=== PATIENT | female | born 1980 | race Caucasian/White ===

== ENCOUNTER 2020-05-17 14:31 | Emergency (ER) | payer OTHER, SELFPAY ==
[2020-05-17 14:47] VITALS: BP 134/69; PULSE 89; RESP 18; TEMP 36.5; O2SAT 98; BMI 47.2
--- NOTE | 2020-05-17 15:02 | CT_ITS ---
EXAMINATION: CT ABDOMEN AND PELVIS WITH CONTRAST CLINICAL INFORMATION: Abdominal pain, fever, bariatric surgery patient COMPARISON: None TECHNIQUE: Multidetector volumetric images were obtained from the superior aspect of the liver through the pubic symphysis following administration 85 mL of Omnipaque 350 intravenous contrast. Sagittal and coronal reformatted images were obtained on the technologist's workstation. Oral contrast: No This CT examination was performed using dose optimization techniques as appropriate, variously including the following: *Automated exposure control *Adjustment of mA and/or kV according to patient size (this includes techniques or standardized protocols for targeted exams where dose is matched to indication/reason for exam; i.e. extremities or head) *Use of iterative reconstruction technique DLP: 1579 mGy-cm FINDINGS: LUNG BASES: The visualized lung bases are unremarkable. LIVER, GALLBLADDER, AND BILIARY TREE: There is diffuse low attenuation of liver parenchyma due to fatty change. The liver is enlarged. The right lobe liver measures 26 cm superior inferior. No focal liver lesion or intrahepatic bile duct dilatation. Gallbladder is contracted. No edema around the gallbladder. No calcified gallstone. There is no bile duct dilatation. The extra hepatic CBD measures 5 mm. PANCREAS: Unremarkable. SPLEEN: Unremarkable. ADRENAL GLANDS: Unremarkable. KIDNEYS AND URETERS: The kidneys are normal in size, shape, and attenuation. No hydronephrosis, hydroureter, or calculi seen. No perinephric stranding. 1.7 cm cortical cyst lower pole of left kidney BLADDER: Unremarkable. GASTROINTESTINAL TRACT: Status post gastric banding. There is no acute abnormality of the bowel. No bowel obstruction. No bowel wall thickening or edema. The appendix is normal. The small bowel loops are unremarkable. Small volume of stool in colon with most of the stool in the right colon and cecum. ABDOMINAL WALL: No significant hernia is appreciated. LYMPH NODES: Normal. VASCULAR: Unremarkable. PELVIC VISCERA: Unremarkable. OSSEOUS STRUCTURES: Unremarkable. CT/CT abdomen pelvis w con IMPRESSION: 1. No acute abnormality the abdomen or pelvis. 2. Diffuse fatty change of liver with hepatomegaly. 3. Gastric band in place. There is no acute abnormality of the bowel.
--- NOTE | 2020-05-17 15:04 | ED.ABDPAIN ---
HPI - Abdominal Pain General Chief Complaint: Abdominal Pain Stated Complaint: stomach pain Time Seen by Provider: 05/17/20 15:02 Source: patient Mode of arrival: ambulatory Limitations: no limitations History of Present Illness HPI narrative: 39-year-old female with history of obesity she is status post gastric lap band in 2014 for weight loss along with history of multiple D&Cs and total hysterectomy as well as tonsillectomy additional medical history includes hyperlipidemia, anxiety and depression who presents ambulatory with complaint of diffuse upper abdominal pain for the past 4 days in addition she has some nausea with fever of 103 days ago which she reports went away and she has had some body aches runny nose, chills. States she has had epigastric pain in the past which will usually last for several days however this is different and has continued on. No recent hospitalization or antibiotics. No recent travel. No recent sick contacts. She denies any chest pain or shortness of breath MD elicited complaint: abdominal pain Pain Consistency: constant Location: epigastric and periumbilical Severity: moderate Quality: cramping and aching Radiation: epigastric Migration to: periumbilical Exacerbating factors: eating Associated symptoms: nausea, diarrhea, fever and chills Related Data Previous Rx's Medication Instructions Recorded nitrofurantoin monohyd/m-cryst 100 mg PO Q12H 7 Days #14 cap 05/17/20 [Macrobid] ondansetron HCl [Zofran] 4 mg PO Q8H PRN #10 tab 05/17/20 Allergies Allergy/AdvReac Type Severity Reaction Status Date / Time cephalexin [From KEFLEX] Allergy Intermediate HIVES Unverified 03/02/20 17:07 morphine [MORPHINE] Allergy Intermediate ? HIVES Unverified 03/02/20 17:07 ibuprofen Allergy Unknown Verified 03/18/19 00:00 NSAIDS (Non-Steroidal AdvReac Intermediate GI UPSET Unverified 03/02/20 17:07 Anti-Inflamma [NSAIDS (NON-STEROIDAL ANTI-INFLAMMA] Motrin Allergy Unknown Uncoded 03/18/19 00:00 Review of Systems Review of Systems Constitutional: No Weight loss, + Fever, + Chills, No Night Sweats, No Fatigue, No Malaise ENT/Mouth: No Hearing loss, No Ear Pain, No Nasal Congestion, No Sinus Pain, No Hoarseness, No sore throat, + Rhinorrhea, No Swallowing Difficulty Eyes: No Eye Pain, No Swelling, No Redness, No Foreign Body, No Discharge, No Vision Changes Cardiovascular: No Chest Pain, No SOB, No Dyspnea on Exertion, No Orthopnea, No Edema, No Palpitations Respiratory: No Cough, No Sputum, No Wheezing, No Smoke Exposure, No Dyspnea Gastrointestinal:As noted in HPI, No Hematochezia, No Melena Genitourinary: No Dysuria, No Urinary Frequency, No Hematuria, No Urinary Incontinence, No Urgency, No Flank Pain, No Urinary Flow Changes, No Hesitancy Musculoskeletal: No joint pain, No Myalgias, No Joint Swelling Skin: No Skin Lesions, No rash Neuro: No Weakness, No Numbness, No Paresthesias, No Loss of Consciousness, No Dizziness, No Headache Psych: No Social Issues Heme/Lymph: No Bruising, No Bleeding,No Lymphadenopathy Endocrine: No Polyuria, No Polydipsia, No Temperature Intolerance Yes all other systems are reviewed and are negative Physical Exam Vital Signs: Vital Signs: Last Vital Signs Temp 97.8 F 05/17/20 16:43 Pulse 56 05/17/20 16:43 Resp 20 05/17/20 16:43 BP 122/64 05/17/20 16:43 Pulse Ox 97 05/17/20 16:43 Body Mass Index 47.2 Reviewed Const: General: cooperative and healthy appearing; No acute distress or intoxicated appearing Nutritional Appearance: average body habitus Orientation/consciousness: patient oriented x3 HENMT: Head: Yes normal to inspection Ears: hearing grossly normal bilaterally Eyes: General: appearance normal, both eyes and all related structures Visual Roman: normal visual roman by confrontation Neck: Neck: Yes normal visual inspection and No tender Thyroid: Thyroid normal Chest: Chest palpation & inspection: normal inspection of the chest Resp: Effort & Inspection: normal respiratory effort Auscultation: clear to auscultation bilaterally Cardio: Jugular venous distension: no JVD Rhythm: regular rhythm GI: Inspection: Yes normal to inspection Palpation (GI): Tenderness to palpation present (GI) in the epigastrum; with no rebound tenderness Percussion: Yes normal to percussion Auscultation: normal bowel sounds : General: Yes no CVA tenderness Back/Spine/Pelvis: Back: no CVA tenderness Skin: General skin exam: no rashes or lesions noted Neuro: General: patient oriented x3 Extrem: General: Yes normal to inspection Course Course Course Narrative: Symptoms better after GI cocktail. Lab/imaging overall without acute findings. No leukocytosis. Renal function intact. CT without acute findings. UA overly infected will go ahead and start her Macrobid. She has not had any diarrhea here I did request that she continues she can have a stool sample through her primary care doctor. She is on a PPI will call her GI for follow-up clear return follow-up instructions provided. Stable for discharge. MDM - Abdominal Pain MDM Narrative Medical decision making narrative: Afebrile, hemodynamically stable upon arrival. Does not meet criteria for sepsis. Labs including respiratory panel ordered. Given her extensive abdominal surgical history and the fever abdominal CT with IV contrast ordered as well rule out acute pathology. Will treat with IV fluids, antiemetic and GI cocktail. Differential Diagnosis Differential diagnosis: Likely abdominal pain, gastroenteritis and gastritis; Unlikely aortic dissection, acute appendicitis, bowel perforation, calculus of kidney, constipation, endometriosis, mesenteric ischemia, pancreatitis, renal colic and small bowel obstruction Differential diagnosis narrative:: differential also includes viral syndrome, viral gastroenteritis, COVID-19. Medical Records Attestation: I reviewed the patient's medical records. Lab Data Attestation: I reviewed the patient's lab results. Result diagrams: 05/17/20 15:22 05/17/20 15:22 Labs: Lab Results 05/17/20 05/17/20 05/17/20 Range/Units 15:22 15:22 15:22 WBC 8.2 (4.8-10.8) X10*3/uL RBC 5.02 (4.20-5.50) X10*6/uL Hgb 13.9 (12.0-16.0) g/dl Hct 42.2 (37-47) % MCV 84.1 (80-98) fL MCH 27.7 (27.0-33.0) pg MCHC 32.9 (31.0-35.0) g/dl RDW 14.5 (11.0-16.0) % Plt Count 264 (160-400) X10*3/uL MPV 10.4 (9.4-12.3) fL Immature Gran % (Auto) 0.2 (0.0-0.4) % Neut % (Auto) 42.2 L (45-73) % Lymph % (Auto) 44.7 H (20-40) % [place] % (Auto) 6.6 (2-11) % Eos % (Auto) 5.4 H (0-4) % Baso % (Auto) 0.9 (0-2) % Lymph # (Auto) 3.7 (1.2-4.9) X10*3/uL [place] # (Auto) 0.5 (0.1-1.2) X10*3/uL Eos # (Auto) 0.4 (0.0-0.4) X10*3/uL Baso # (Auto) 0.1 (0.0-0.2) X10*3/uL Abs Immat Gran (auto) 0.02 (0.00-0.03) X10*3/uL Absolute Neuts (auto) 3.5 (2.0-8.3) X10*3/uL Absolute Nucleated RBC 0.000 (0.0-0.012) X10*3/uL Nucleated RBC % (auto) 0.0 (0.0-0.2) /100WBC Sodium 140 (135-145) mmol/L Potassium 4.1 (3.3-5.1) mmol/l Chloride 103 (96-108) mmol/L Carbon Dioxide 30 H (22-29) mmol/L Anion Gap 11 L (12-20) BUN 9 (9-16) mg/dL Creatinine 0.86 (0.5-1.4) mg/dL Estim Creat Clear Calc 121.8 Estimated GFR > 60 Random Glucose 94 (60-115) mg/dL Calcium 9.0 (8.4-10.2) mg/dL Total Bilirubin 0.4 (0.0-1.0) mg/dL AST 54 H (5-31) U/L ALT 54 H (0-31) U/L Alkaline Phosphatase 93 (39-117) U/L Total Protein 7.2 (6.5-8.0) g/dL Albumin 4.2 (3.5-5.0) g/dL Urine Color Urine Appearance Urine pH (5.0-8.0) Ur Specific [place] (1.005-1.025) Urine Protein (NEG-TRACE) MG/DL Urine Glucose (UA) (NEG) MG/DL Urine Ketones (NEG) MG/DL Urine Blood (NEG) Urine Nitrite (NEG) Ur Leukocyte Esterase (NEG) Urine RBC (0) /HPF Urine WBC (0-4) /HPF Ur Squamous Epith Cells /LPF Urine Bacteria /LPF Urine Mucus /LPF Urine Test (NEGATIVE) Coronavirus (PCR) NEGATIVE (Negative) Influenza Type A (PCR) NEGATIVE (Negative) Influenza Type B (PCR) NEGATIVE (Negative) RSV RNA Qual (PCR) NEGATIVE (Negative) 05/17/20 Range/Units 15:22 WBC (4.8-10.8) X10*3/uL RBC (4.20-5.50) X10*6/uL Hgb (12.0-16.0) g/dl Hct (37-47) % MCV (80-98) fL MCH (27.0-33.0) pg MCHC (31.0-35.0) g/dl RDW (11.0-16.0) % Plt Count (160-400) X10*3/uL MPV (9.4-12.3) fL Immature Gran % (Auto) (0.0-0.4) % Neut % (Auto) (45-73) % Lymph % (Auto) (20-40) % [place] % (Auto) (2-11) % Eos % (Auto) (0-4) % Baso % (Auto) (0-2) % Lymph # (Auto) (1.2-4.9) X10*3/uL [place] # (Auto) (0.1-1.2) X10*3/uL Eos # (Auto) (0.0-0.4) X10*3/uL Baso # (Auto) (0.0-0.2) X10*3/uL Abs Immat Gran (auto) (0.00-0.03) X10*3/uL Absolute Neuts (auto) (2.0-8.3) X10*3/uL Absolute Nucleated RBC (0.0-0.012) X10*3/uL Nucleated RBC % (auto) (0.0-0.2) /100WBC Sodium (135-145) mmol/L Potassium (3.3-5.1) mmol/l Chloride (96-108) mmol/L Carbon Dioxide (22-29) mmol/L Anion Gap (12-20) BUN (9-16) mg/dL Creatinine (0.5-1.4) mg/dL Estim Creat Clear Calc Estimated GFR Random Glucose (60-115) mg/dL Calcium (8.4-10.2) mg/dL Total Bilirubin (0.0-1.0) mg/dL AST (5-31) U/L ALT (0-31) U/L Alkaline Phosphatase (39-117) U/L Total Protein (6.5-8.0) g/dL Albumin (3.5-5.0) g/dL Urine Color YELLOW Urine Appearance CLOUDY Urine pH 5.5 (5.0-8.0) Ur Specific [place] >= 1.030 H (1.005-1.025) Urine Protein TRACE (NEG-TRACE) MG/DL Urine Glucose (UA) NEG (NEG) MG/DL Urine Ketones NEG (NEG) MG/DL Urine Blood 1+ H (NEG) Urine Nitrite NEG (NEG) Ur Leukocyte Esterase 1+ H (NEG) Urine RBC 5-9 H (0) /HPF Urine WBC 15-29 H (0-4) /HPF Ur Squamous Epith Cells 2+ /LPF Urine Bacteria 1+ /LPF Urine Mucus 1+ /LPF Urine Test NEGATIVE (NEGATIVE) Coronavirus (PCR) (Negative) Influenza Type A (PCR) (Negative) Influenza Type B (PCR) (Negative) RSV RNA Qual (PCR) (Negative) Discharge Plan Discharge Clinical Impression: UTI (urinary tract infection), Gastroenteritis Patient Disposition: Home, Self-Care Instructions: Gastroenteritis (ED), Urinary Tract Infection in Older Adults (ED) Additional Instructions: taking medications as prescribed Return if any concerns or worsening symptoms Thank you Prescriptions: New ondansetron HCl [Zofran] 4 mg tablet 4 mg PO Q8H PRN (Reason: nausea and vomiting) Qty: 10 RF: 0 nitrofurantoin monohyd/m-cryst [Macrobid] 100 mg capsule 100 mg PO Q12H 7 Days Qty: 14 RF: 0 Referrals: Megan Weiss, [employer] [facility]PER [Primary Care Provider] - 5 days [facility] Social History Social History Advance Directives: No Advance Directives Information Provided: No
[2020-05-17] MEDS: 0.9 % Sodium Chloride 1,000 ML 1000 ML IV (15:24)
[2020-05-17] MEDS: Magnesium Hydrox/Alum Hydrox 30 ML ORAL.SUSP PO (15:38)
[2020-05-17] MEDS: Lidocaine HCl Viscous 2 % 15 ML SOLUTION MUCOUS MEM (15:38)
[2020-05-17] MEDS: ondansetron HCL 4 MG/2 ML VIAL IVPUSH (15:38)
[2020-05-17 15:52] LABS: MANUAL DIFF FLAG NO
[2020-05-17 15:56] LABS: Basophils Absolute Auto 0.1 X10*3/uL (0.0-0.2); Basophils Percent Auto 0.9 % (0-2); Eosinophils Absolute Auto 0.4 X10*3/uL (0.0-0.4); Eosinophils Percent Auto 5.4 % (0-4); Glucose Urine UA NEG (NEG); Hematocrit 42.2 % (37-47); Hemoglobin 13.9 g/dl (12.0-16.0); Imm Gran Abs Auto 0.02 X10*3/uL (0.00-0.03); Imm Gran Pct Auto 0.2 % (0.0-0.4); Leukocyte Esterase Urine 1+ (NEG); Lymphocytes Absolute Auto 3.7 X10*3/uL (1.2-4.9); Lymphocytes Percent Auto 44.7 % (20-40); Mean Corpuscular HGB Conc 32.9 g/dl (31.0-35.0); Mean Corpuscular Hemoglobin 27.7 pg (27.0-33.0); Mean Corpuscular Volume 84.1 fL (80-98); Mean Platelet Volume 10.4 fL (9.4-12.3); Monocytes Absolute Auto 0.5 X10*3/uL (0.1-1.2); Monocytes Percent Auto 6.6 % (2-11); Neutrophils Absolute Auto 3.5 X10*3/uL (2.0-8.3); Neutrophils Percent Auto 42.2 % (45-73); Nitrite Urine NEG (NEG); PH 5.5 (5.0-8.0); Platelet Count 264 X10*3/uL (160-400); Red Blood Count 5.02 X10*6/uL (4.20-5.50); Red Cell Distribution Width 14.5 % (11.0-16.0); Specific Gravity - Urine >= 1.030 (1.005-1.025); Urine Blood 1+ (NEG); Urine Ketones NEG (NEG); Urine Protein TRACE MG/DL (NEG-TRACE); White Blood Count 8.2 X10*3/uL (4.8-10.8)
[2020-05-17 16:09] LABS: Appearance Urine CLOUDY; Color Urine YELLOW
[2020-05-17 16:11] LABS: UPreg QC Valid YES; Urine Pregnancy NEGATIVE (NEGATIVE)
[2020-05-17 16:15] LABS: Bacteria Urine 1+ /LPF; Mucus Urine 1+ /LPF; Squamous Epithelial Cell Urine 2+ /LPF
[2020-05-17 16:23] LABS: Alanine Aminotransferase 54 U/L (0-31); Albumin Level 4.2 g/dL (3.5-5.0); Alkaline Phosphatase 93 U/L (39-117); Anion Gap 11 (12-20); Aspartate Amino Transferase 54 U/L (5-31); Bilirubin Total 0.4 mg/dL (0.0-1.0); Blood Urea Nitrogen 9 mg/dL (9-16); Carbon Dioxide 30 mmol/L (22-29); Chloride 103 mmol/L (96-108); Creatinine Clr Calc Pharmacy 121.8; Estimated Glomerular Filt Rate > 60; Glucose Random 94 mg/dL (60-115); Potassium 4.1 mmol/l (3.3-5.1); Sodium 140 mmol/L (135-145); Total Protein 7.2 g/dL (6.5-8.0)
[2020-05-17 16:43] VITALS: BP 122/64; PULSE 56; RESP 20; TEMP 36.6; O2SAT 97
[2020-05-17 16:43] LABS: Influenza A PCR NEGATIVE (Negative); Influenza B PCR NEGATIVE (Negative); Resp Syncy Virus RNA Qual PCR NEGATIVE (Negative); SARS COV2 PCR INHOUSE NEGATIVE (Negative)
[2020-05-17] MEDS: iohexoL 350 MG/ML 100 ML INFUS..BTL IV (16:47)
[2020-05-17 18:05] VITALS: BP 119/67; PULSE 69; RESP 16; TEMP 36.6; O2SAT 96
== END 2020-05-17 18:00 | disposition home or self-care (01) ==
PROVIDERS: Nurse Practitioner Primary Care; Emergency Provider Emergency Medicine; PCP Nurse Practitioner Family
DX: K52.9 Noninfective gastroenteritis and colitis, unspecified (principal); N39.0 Urinary tract infection, site not specified; Z79.899 Other long term (current) drug therapy
CPT/HCPCS: 0241U; 36415; 74177; 80053; 81001; 81025; 85025; 87086; 96361; 96374; 99284; J2405; Q9967

== ENCOUNTER 2021-10-14 15:18 | Emergency (ER) | payer MEDICAID, SELFPAY ==
--- NOTE | ~2021-10-14 | US_ITS ---
EXAMINATION: US ABDOMEN LIMITED CLINICAL INFORMATION: Right upper quadrant pain. COMPARISON: None TECHNIQUE: Real-time imaging of the right upper quadrant abdominal viscera. FINDINGS: PANCREAS: Normal. LIVER: The liver is normal in size. The liver contour is normal. Diffuse increased hepatic echotexture suggesting diffuse fatty infiltration of the liver. No focal hepatic lesion. There is no intrahepatic biliary duct dilatation seen. GALLBLADDER: Normal. The gallbladder is contracted without evidence of stones, sludge, polyps, wall thickening or pericholecystic fluid. COMMON BILE DUCT: Normal in caliber measuring 0.2 cm in diameter. RIGHT KIDNEY: Normal. No hydronephrosis. No renal calculi or focal parenchymal lesions. The kidney measures 10.2 cm in maximum dimension. FREE FLUID: None. US/US abdomen limited IMPRESSION: Diffuse fatty infiltration of the liver. Gallbladder contracted but otherwise unremarkable
[2021-10-14 15:25] VITALS: BP 122/83; PULSE 91; RESP 18; TEMP 36.8; O2SAT 97; BMI 43.5
[2021-10-14 15:36] LABS: MANUAL DIFF FLAG NO
[2021-10-14 15:38] LABS: Basophils Absolute Auto 0.1 X10*3/uL (0.0-0.2); Basophils Percent Auto 0.8 % (0-2); Eosinophils Absolute Auto 0.5 X10*3/uL (0.0-0.4); Eosinophils Percent Auto 4.5 % (0-4); Hematocrit 40.6 % (37.0-47.0); Hemoglobin 13.7 g/dl (12.0-16.0); Imm Gran Abs Auto 0.03 X10*3/uL (0.00-0.03); Imm Gran Pct Auto 0.3 % (0.0-0.4); Lymphocytes Percent Auto 40.5 % (20-40); Mean Corpuscular HGB Conc 33.7 g/dl (31.0-35.0); Mean Corpuscular Hemoglobin 29.1 pg (27.0-33.0); Mean Corpuscular Volume 86.2 fL (80.0-98.0); Mean Platelet Volume 9.8 fL (9.4-12.3); Monocytes Absolute Auto 0.5 X10*3/uL (0.1-1.2); Monocytes Percent Auto 5.3 % (2-11); Neutrophils Absolute Auto 4.8 x10*3/uL (2.0-8.3); Neutrophils Percent Auto 48.6 % (45-73); Platelet Count 258 X10*3/uL (160-400); Red Blood Count 4.71 X10*6/uL (4.20-5.50); Red Cell Distribution Width 14.4 % (11.0-16.0)
[2021-10-14 15:52] LABS: Anion Gap 14 (12-20); Blood Urea Nitrogen 7 mg/dL (9-16); Calcium 9.5 mg/dL (8.4-10.2); Carbon Dioxide 22 mmol/L (22-29); Chloride 106 mmol/L (96-108); Creatinine Clr Calc Pharmacy 123.5; Estimated Glomerular Filt Rate > 60; Glucose Random 105 mg/dL (60-115); Potassium 3.7 mmol/L (3.3-5.1); Sodium 138 mmol/L (135-145)
[2021-10-14 17:18] LABS: Alanine Aminotransferase 36 U/L (0-31); Albumin Level 4.1 g/dL (3.5-5.0); Alkaline Phosphatase 101 U/L (39-117); Aspartate Amino Transferase 38 U/L (5-31); Bilirubin Direct < 0.2 mg/dL (0.0-0.5); Bilirubin Total 0.4 mg/dL (0.0-1.0); Lipase 64 U/L (8-78); Total Protein 7.3 g/dL (6.5-8.0)
--- NOTE | 2021-10-14 17:30 | ED.ABDPAIN ---
HPI - Abdominal Pain General Chief Complaint: Abdominal Pain <MALLORY Moffett Last Filed: 10/14/21 19:06> Stated Complaint: Abd Pain Radiating to Back <MALLORY Moffett Last Filed: 10/14/21 19:06> Time Seen by Provider: 10/14/21 17:05 <MALLORY Moffett Last Filed: 10/14/21 19:06> Source: patient <MALLORY Moffett Last Filed: 10/14/21 19:06> Mode of arrival: ambulatory <MALLORY Moffett Last Filed: 10/14/21 19:06> Limitations: no limitations <MALLORY Moffett Last Filed: 10/14/21 19:06> History of Present Illness HPI narrative: 40 yo female with history of obesity s/p lap band in 2013, GERD, anxiety, depression, HLD, who presents to the ER with epigastric and RUQ abdominal pain that radiates around to her back. She reports she has had this pain before and she has been told she has had gallbladder issues but she has not had this pain long time. She reports the pain is worse with food. Has been going on for the last couple of days. She is nauseous but not vomiting. She had a normal bowel movement yesterday. She has no fever or chills. She is not a drinker. She states the pain starts in her epigastric area and radiates to the right upper quadrant into the back. It is constant but worse with eating. <MALLORY Moffett Last Filed: 10/14/21 19:06> MD elicited complaint: abdominal pain <MALLORY Moffett Last Filed: 10/14/21 19:06> Pertinent past history: none <MALLORY Moffett Last Filed: 10/14/21 19:06> Onset (ago): day(s) <MALLORY Moffett Last Filed: 10/14/21 19:06> Pain Consistency: constant <MALLORY Moffett Last Filed: 10/14/21 19:06> Location: RUQ <MALLORY Moffett Last Filed: 10/14/21 19:06> Severity: moderate <MALLORY Moffett - Last Filed: 10/14/21 19:06> Pain scale (0-10): 6 <MALLORY Mofftet - Last Filed: 10/14/21 19:06> Quality: aching and sharp <MALLORY Moffett - Last Filed: 10/14/21 19:06> Radiation: epigastric and back <MALLORY Moffett Last Filed: 10/14/21 19:06> Migration to: no migration <MALLORY Moffett - Last Filed: 10/14/21 19:06> Exacerbating factors: eating <MALLORY Moffett - Last Filed: 10/14/21 19:06> Relieving factors: nothing <MALLORY Moffett - Last Filed: 10/14/21 19:06> Context: history of similar episodes <MALLORY Moffett Last Filed: 10/14/21 19:06> Associated symptoms: nausea <MALLORY Moffett Last Filed: 10/14/21 19:06> Related Data Home Medications: Previous Rx's Medication Instructions Recorded nitrofurantoin 100 mg PO Q12H 7 Days #14 cap 05/17/20 monohydrate/macrocrystals 100 mg capsule (Macrobid) ondansetron HCl 4 mg tablet 4 mg PO Q8H PRN #10 tab 05/17/20 (Zofran) ondansetron 4 mg disintegrating 4 mg PO Q8H PRN #7 tab 10/14/21 tablet <MALLORY Moffett Last Filed: 10/14/21 19:06> Allergies/Adverse Reactions: Allergies Allergy/AdvReac Type Severity Reaction Status Date / Time cephalexin [From KEFLEX] Allergy Intermediate HIVES Unverified 03/02/20 17:07 morphine [MORPHINE] Allergy Intermediate ? HIVES Unverified 03/02/20 17:07 ibuprofen Allergy Unknown Verified 03/18/19 00:00 NSAIDS (Non-Steroidal AdvReac Intermediate GI UPSET Unverified 03/02/20 17:07 Anti-Inflamma [NSAIDS (NON-STEROIDAL ANTI-INFLAMMA] Motrin Allergy Unknown Uncoded 03/18/19 00:00 <MALLORY Moffett - Last Filed: 10/14/21 19:06> Review of Systems Review of Systems Constitutional: No Fever, No Chills ENT/Mouth: No sore throat, No Rhinorrhea, No Swallowing Difficulty Cardiovascular: No Chest Pain, No SOB Respiratory: No Cough, No Sputum Gastrointestinal: + Nausea, No Vomiting, No Diarrhea, + abdominal Pain Genitourinary: No Dysuria, No Urinary Frequency, No Hematuria Musculoskeletal: No joint pain, No Myalgias Skin: No Skin Lesions, No rash Neuro: No Weakness, No Numbness, No Dizziness, No Headache Psych: No Anxiety/Panic, No Depression Heme/Lymph: No Bruising, No Lymphadenopathy <MALLORY Moffett Last Filed: 10/14/21 19:06> [facility] Past Medical History Medical History: Medical History (Updated 10/15/21 @ 00:01 by Courtney Damahnaz) Insomnia <MALLORY Moffett Last Filed: 10/14/21 19:06> Social History Social History: Social History Advance Directives: No Advance Directives Information Provided: No Patient : No <MALLORY Moffett Last Filed: 10/14/21 19:06> Physical Exam ED Vital Signs: Vital Signs - 24 hr 10/14/21 15:25 Temperature 98.3 F Pulse Rate 91 Respiratory Rate 18 Blood Pressure 122/83 Pulse Oximetry 97 BMI result Body Mass Index 43.5 <MALLORY Moffett Last Filed: 10/14/21 19:06> Appearance: Alert. Oriented X3. No acute distress. Eyes: Pupils equal, round and reactive to light. ENT: Pharynx normal. Neck: Normal inspection. Neck supple. CVS: Normal heart rate and rhythm. Pulses normal. Respiratory: No respiratory distress. Breath sounds normal. Abdomen: Morbidly obese, Soft with epigastric and right upper quadrant tenderness. Negative [place] sign. No rebound or guarding. Normal +BS x4 Skin: Skin warm and dry. Normal skin color. Normal skin turgor. No rashes. Extremities: No lower extremity edema. Neuro: Oriented X 3. No motor deficit. No sensory deficit. <MALLORY Moffett Last Filed: 10/14/21 19:06> Course Course Course Narrative: 40-year-old female presents to the ER with epigastric and right upper quadrant pain that radiates to the back along with nausea. She has tenderness in right upper quadrant on examination. She has mildly elevated transaminases (chronic) but no elevated bilirubin or alk-phos, no evidence of biliary obstruction. Will proceed with right upper quadrant ultrasound to assess for possible stones. Less likely cholecystitis. Lipase is normal, doubt acute pancreatitis. No risk factors. <MALLORY Moffett - Last Filed: 10/14/21 19:06> Reevaluation(s) Reevaluation #1: Right upper quadrant ultrasound shows contracted gallbladder and diffuse fatty liver but no evidence of gallstones or infection. Patient was advised of the results and need for dietary modifications. She was encourage follow-up with Dr. Vásquez as for evaluation of elective cholecystectomy. Stable for discharge home with close outpatient follow-up. <MALLORY Moffett - Last Filed: 10/14/21 19:06> MDM - Abdominal Pain Lab Data Result diagrams: : 10/14/21 15:32 10/14/21 15:32 <MALLORY Moffett - Last Filed: 10/14/21 19:06> Labs: Lab Results 10/14/21 10/14/21 10/14/21 Range/Units 15:32 15:32 17:29 WBC 10.0 (4.8-10.8) X10*3/uL RBC 4.71 (4.20-5.50) X10*6/uL Hgb 13.7 (12.0-16.0) g/dl Hct 40.6 (37.0-47.0) % MCV 86.2 (80.0-98.0) fL MCH 29.1 (27.0-33.0) pg MCHC 33.7 (31.0-35.0) g/dl RDW 14.4 (11.0-16.0) % Plt Count 258 (160-400) X10*3/uL MPV 9.8 (9.4-12.3) fL Immature Gran % (Auto) 0.3 (0.0-0.4) % Neut % (Auto) 48.6 (45-73) % Lymph % (Auto) 40.5 H (20-40) % [place] % (Auto) 5.3 (2-11) % Eos % (Auto) 4.5 H (0-4) % Baso % (Auto) 0.8 (0-2) % Lymph # (Auto) 4.0 (1.2-4.9) X10*3/uL [place] # (Auto) 0.5 (0.1-1.2) X10*3/uL Eos # (Auto) 0.5 H (0.0-0.4) X10*3/uL Baso # (Auto) 0.1 (0.0-0.2) X10*3/uL Abs Immat Gran (auto) 0.03 (0.00-0.03) X10*3/uL Absolute Neuts (auto) 4.8 (2.0-8.3) x10*3/uL Absolute Nucleated RBC 0.000 (0.0-0.012) X10*3/uL Nucleated RBC % (auto) 0.0 (0.0-0.2) /100WBC Sodium 138 (135-145) mmol/L Potassium 3.7 (3.3-5.1) mmol/L Chloride 106 (96-108) mmol/L Carbon Dioxide 22 (22-29) mmol/L Anion Gap 14 (12-20) BUN 7 L (9-16) mg/dL Creatinine 0.80 (0.5-1.4) mg/dL Estim Creat Clear Calc 123.5 Estimated GFR > 60 Random Glucose 105 (60-115) mg/dL Calcium 9.5 (8.4-10.2) mg/dL Total Bilirubin 0.4 (0.0-1.0) mg/dL Direct Bilirubin < 0.2 (0.0-0.5) mg/dL AST 38 H (5-31) U/L ALT 36 H (0-31) U/L Alkaline Phosphatase 101 (39-117) U/L Total Protein 7.3 (6.5-8.0) g/dL Albumin 4.1 (3.5-5.0) g/dL Lipase 64 (8-78) U/L Urine Color YELLOW Urine Appearance CLEAR Urine pH 5.5 (5.0-8.0) Ur Specific [place] <= 1.005 (1.005-1.025) Urine Protein NEG (NEG-TRACE) MG/DL Urine Glucose (UA) NEG (NEG) MG/DL Urine Ketones NEG (NEG) MG/DL Urine Blood NEG (NEG) Urine Nitrite NEG (NEG) Ur Leukocyte Esterase NEG (NEG) Urine Test (NEGATIVE) 10/14/21 Range/Units 17:29 WBC (4.8-10.8) X10*3/uL RBC (4.20-5.50) X10*6/uL Hgb (12.0-16.0) g/dl Hct (37.0-47.0) % MCV (80.0-98.0) fL MCH (27.0-33.0) pg MCHC (31.0-35.0) g/dl RDW (11.0-16.0) % Plt Count (160-400) X10*3/uL MPV (9.4-12.3) fL Immature Gran % (Auto) (0.0-0.4) % Neut % (Auto) (45-73) % Lymph % (Auto) (20-40) % [place] % (Auto) (2-11) % Eos % (Auto) (0-4) % Baso % (Auto) (0-2) % Lymph # (Auto) (1.2-4.9) X10*3/uL [place] # (Auto) (0.1-1.2) X10*3/uL Eos # (Auto) (0.0-0.4) X10*3/uL Baso # (Auto) (0.0-0.2) X10*3/uL Abs Immat Gran (auto) (0.00-0.03) X10*3/uL Absolute Neuts (auto) (2.0-8.3) x10*3/uL Absolute Nucleated RBC (0.0-0.012) X10*3/uL Nucleated RBC % (auto) (0.0-0.2) /100WBC Sodium (135-145) mmol/L Potassium (3.3-5.1) mmol/L Chloride (96-108) mmol/L Carbon Dioxide (22-29) mmol/L Anion Gap (12-20) BUN (9-16) mg/dL Creatinine (0.5-1.4) mg/dL Estim Creat Clear Calc Estimated GFR Random Glucose (60-115) mg/dL Calcium (8.4-10.2) mg/dL Total Bilirubin (0.0-1.0) mg/dL Direct Bilirubin (0.0-0.5) mg/dL AST (5-31) U/L ALT (0-31) U/L Alkaline Phosphatase (39-117) U/L Total Protein (6.5-8.0) g/dL Albumin (3.5-5.0) g/dL Lipase (8-78) U/L Urine Color Urine Appearance Urine pH (5.0-8.0) Ur Specific [place] (1.005-1.025) Urine Protein (NEG-TRACE) MG/DL Urine Glucose (UA) (NEG) MG/DL Urine Ketones (NEG) MG/DL Urine Blood (NEG) Urine Nitrite (NEG) Ur Leukocyte Esterase (NEG) Urine Test NEGATIVE (NEGATIVE) <MALLORY Moffett - Last Filed: 10/14/21 19:06> Discharge Plan Discharge Clinical Impression: Biliary colic <MALLORY Moffett - Last Filed: 10/14/21 19:06> Patient Disposition: Home, Self-Care <MALLORY Moffett - Last Filed: 10/14/21 19:06> Instructions: Biliary Colic (ED) <MALLORY Moffett - Last Filed: 10/14/21 19:06> Additional Instructions: Your lab work today was unremarkable. Ultrasound of your abdomen showed your gallbladder is contracted, but there are no evidence of gallstones or infection in the gallbladder. Given your history and location of the pain is most likely due to contractions of your gallbladder. This is known to be worse with foods high in fat her dairy. Recommend significant dietary modifications including avoiding all fatty food, dairy, greasy or fried food. Recommend following up with the general surgeon for evaluation of elective gallbladder removal. Follow-up with her primary care doctor as well. If you develop new or worsening symptoms call 911 or come back to the ER for further evaluation. <MALLORY Moffett - Last Filed: 10/14/21 19:06> Prescriptions: New ondansetron 4 mg tablet,disintegrating 4 mg PO Q8H PRN (Reason: nausea and vomiting) Qty: 7 0RF No Action ondansetron HCl [Zofran] 4 mg tablet 4 mg PO Q8H PRN (Reason: nausea and vomiting) Qty: 10 0RF nitrofurantoin monohyd/m-cryst [Macrobid] 100 mg capsule 100 mg PO Q12H 7 Days Qty: 14 0RF Rx Instructions: must administer with a meal/food <MALLORY Moffett - Last Filed: 10/14/21 19:06> Referrals: Molina Murphy MD [Physician] - (biliary colic) <MALLORY Moffett - Last Filed: 10/14/21 19:06> Stand Alone Forms: Work/School Release <MALLORY Moffett - Last Filed: 10/14/21 19:06> Interventions: ED Discharge Assessment Last Done: 10/14/21 19:19 <MALLORY Moffett - Last Filed: 10/14/21 19:06> Discharge Date/Time: 10/14/21 19:21 <MALLORY Moffett - Last Filed: 10/14/21 19:06>
[2021-10-14] MEDS: HYDROcodone Bit/Acetam 5/325 TABLET 1 TAB PO (17:32)
[2021-10-14 17:42] LABS: Appearance Urine CLEAR; Color Urine YELLOW; Glucose Urine UA NEG (NEG); Leukocyte Esterase Urine NEG (NEG); Nitrite Urine NEG (NEG); PH 5.5 (5.0-8.0); Specific Gravity - Urine <= 1.005 (1.005-1.025); Urine Blood NEG (NEG); Urine Ketones NEG (NEG); Urine Protein NEG (NEG-TRACE)
[2021-10-14 17:43] LABS: UPreg QC Valid YES; Urine Pregnancy NEGATIVE (NEGATIVE)
== END 2021-10-14 19:21 | disposition home or self-care (01) ==
PROVIDERS: Physician Assistant; Emergency Provider Emergency Medicine; PCP Nurse Practitioner Family
DX: K80.50 Calculus of bile duct without cholangitis or cholecystitis without obstruction (principal); Z98.84 Bariatric surgery status
CPT/HCPCS: 36415; 76705; 80048; 80076; 81003; 81025; 83690; 85025; 99284

== ENCOUNTER → 2021-10-16 10:12 | Outpatient (BNVA) | payer MEDICAID, SELFPAY | PROVIDERS: PCP Nurse Practitioner Family; Referring Provider Nurse Practitioner Family; Visit Provider Surgery | DX: K75.81 Nonalcoholic steatohepatitis (NASH) (principal); R10.11 Right upper quadrant pain; K21.9 Gastro-esophageal reflux disease without esophagitis; E66.01 Morbid (severe) obesity due to excess calories; Z68.41 Body mass index [BMI] 40.0-44.9, adult; Z98.84 Bariatric surgery status | CPT/HCPCS: 99202 ==

== ENCOUNTER 2022-01-08 10:19 | Outpatient (REF) | payer MEDICAID, SELFPAY ==
--- NOTE | ~2022-01-08 | FL_ITS ---
EXAMINATION: XR GI SERIES CLINICAL INFORMATION: Gastroesophageal reflux disease. History of gastric lap band placement in approximately 2013. COMPARISON: None. TECHNIQUE: Routine upper GI air-contrast study was performed in the upright and lying position. FINDINGS: Following oral administration of thick barium and effervescent granules in upright view there is normal propagation of bolus from the oral cavity through the pharynx and esophagus without any evidence of obstruction, narrowing or stricture. On placing patient supine and prone there is a gastric lap band in correct position. However the gastric band is widely patent with spontaneous propagation of barium from the esophagus through the small stomach into the larger stomach. The rest of the stomach course, caliber and peristalsis are normal. The mucosal pattern is normal. No gastroesophageal reflux or hiatal hernia are seen. FLUOROSCOPY TIME: 2.7 minutes. DOSE AREA PRODUCT: 63.936 uGy-m2 (microgray-meter squared). FL/FL upper GI series IMPRESSION: Widely patent gastric lap band with no evidence of hiatal hernia or gastroesophageal reflux at this time. There is rapid passage of barium from this distal esophagus, through the GE junction and the gastric lap band into the larger stomach.
== END 2022-01-08 10:20 | disposition home or self-care (01) ==
LOC: HO.XRAY 10:19
PROVIDERS: Visit Provider Surgery
DX: R10.11 Right upper quadrant pain (principal); K21.9 Gastro-esophageal reflux disease without esophagitis; Z98.84 Bariatric surgery status
CPT/HCPCS: 74240

== ENCOUNTER 2023-02-27 12:39 | Outpatient (REF) | payer MEDICAID, SELFPAY ==
[2023-02-27 14:15] LABS: MANUAL DIFF FLAG NO
[2023-02-27 14:53] LABS: Basophils Absolute Auto 0.1 X10*3/uL (0.0-0.2); Basophils Percent Auto 1.1 % (0-2); Eosinophils Absolute Auto 0.4 X10*3/uL (0.0-0.4); Eosinophils Percent Auto 4.6 % (0-4); Hematocrit 44.5 % (37.0-47.0); Hemoglobin 14.3 g/dl (12.0-16.0); Imm Gran Abs Auto 0.02 X10*3/uL (0.00-0.03); Imm Gran Pct Auto 0.2 % (0.0-0.4); Lymphocytes Percent Auto 35.2 % (20-40); Mean Corpuscular HGB Conc 32.1 g/dl (31.0-35.0); Mean Corpuscular Volume 80.8 fL (80.0-98.0); Mean Platelet Volume 11.4 fL (9.4-12.3); Monocytes Absolute Auto 0.5 X10*3/uL (0.1-1.2); Monocytes Percent Auto 5.4 % (2-11); Neutrophils Absolute Auto 4.6 x10*3/uL (2.0-8.3); Neutrophils Percent Auto 53.5 % (45-73); Platelet Count 293 X10*3/uL (160-400); Red Blood Count 5.51 X10*6/uL (4.20-5.50); Red Cell Distribution Width 13.8 % (11.0-16.0); White Blood Count 8.6 X10*3/uL (4.8-10.8)
[2023-02-27 15:13] LABS: Alanine Aminotransferase 21 U/L (0-31); Albumin Level 4.6 g/dL (3.5-5.0); Alkaline Phosphatase 88 U/L (39-117); Anion Gap 14 (12-20); Aspartate Amino Transferase 24 U/L (5-31); Bilirubin Total 0.3 mg/dL (0.0-1.0); Blood Urea Nitrogen 10 mg/dL (9-16); C Reactive Protein 1.38 mg/dL (< or = 0.50); Calcium 10.2 mg/dL (8.4-10.2); Carbon Dioxide 26 mmol/L (22-29); Chloride 102 mmol/L (96-108); Estimated Glomerular Filt Rate > 60; Glucose Random 88 mg/dL (60-115); Sodium 138 mmol/L (135-145); Total Protein 8.2 g/dL (6.5-8.0)
[2023-02-27 15:42] LABS: Estimated Average Glucose 103 mg/dL; Hemoglobin A1c % 5.2 % (<6.0)
[2023-02-27 17:12] LABS: Amphetamine Screen Urine POSITIVE (Not Detect); Barbiturates, Urine Not Detected (Not Detect); Benzodiazepines Screen Urine Not Detected (Not Detect); Cannabinoid Screen Urine POSITIVE (Not Detect); Cocaine Screen Urine Not Detected (Not Detect); Fentanyl, urine Not Detected (Not Detect); Opiate Screen Urine Not Detected (Not Detect); Phencyclidine Screen Urine Not Detected (Not Detect)
[2023-03-06 22:19] LABS: Cotinine, U 4 ng/mL; Nicotine, U <2 ng/mL
== END 2023-02-27 12:40 | disposition home or self-care (01) ==
LOC: HO.LAB 12:39
PROVIDERS: PCP Nurse Practitioner Family; Visit Provider Surgery
DX: R13.10 Dysphagia, unspecified (principal); R10.11 Right upper quadrant pain; E66.01 Morbid (severe) obesity due to excess calories; K75.81 Nonalcoholic steatohepatitis (NASH); K21.9 Gastro-esophageal reflux disease without esophagitis; Z98.84 Bariatric surgery status
CPT/HCPCS: 80053; 80307; 80323; 83036; 84134; 85025; 86140; 99212

== ENCOUNTER 2023-02-27 12:39 | Outpatient (AMB) | payer MEDICAID, SELFPAY ==
--- NOTE | 2023-02-27 12:41 | MHC.OFFVISWM ---
Intake VS Expanded 02/27/23 12:52 Height 5 ft 6 in Weight 256 lb BMI 41.3 BP 132/84 Blood Pressure Location Rt brachial Blood Pressure Position Sitting Pulse 81 Pulse Source Pulse Oximeter Temp 96.9 F Temperature Source Tympanic Pulse Oximetry 99 Oxygen Delivery Method Room Air Body Fat 125.4 Body Fat Percentage 49.0 Free Fat Mass 130.6 Muscle Mass 123.6 Visceral Mass 14.0 Water Mass 93.2 BMR 1,869 Neck Circumference 15.25 in Waist Circumference 4 ft 4 in Intake Visit Reasons: (OV) SWL Consult Donor Center Technician Required: No Slurry Control Tender: Slurry Control Tender offered & declined Allergies cephalexin [From KEFLEX] Allergy (Intermediate, Verified 10/16/21 10:38) HIVES ibuprofen Allergy (Unknown, Verified 10/16/21 10:38) Abdominal Pain NSAIDS (Non-Steroidal Anti-Inflamma [NSAIDS (NON-STEROIDAL ANTI-INFLAMMA] Adverse Reaction (Intermediate, Verified 10/16/21 10:38) GI UPSET Motrin Allergy (Unknown, Uncoded 10/16/21 10:38) Abdominal Pain HPI HPI Comments History of Present Illness Details The patient is a 40-year-old woman with a history of obesity and a BMI of 43.7 who has been sent by way of the emergency department at [facility] because of right upper quadrant pain that radiates to her back. The patient notes that this pain has been present for at least 5 years. She is unaware of any association to food. She was seen for these complaints Oct, 2021 and did not f/u with labs or testing. This is a 42 year old woman who is here to start SWL program with SWL classes. Her goal is to establish healthier living plan and maintain a healthy weight. She reports first being concerned about her weight several years ago & has been in 3 SWL programs including [facility] where her lap band was placed in 2013, [facility] with Dr. Kumar and then again this year with Dr. Kumar at [facility]. She has tried multiple methods of weight loss including lap band, fad diets, WW without permanent results. She states she was scheduled to have an EGD today by Dr. Kumar, however due to ongoing personal conflict with Dr. Kumar, she decided to drop out of the program and here. She reports ongoing dysphagia and nausea. She notes that the nausea wakes her from sleep at times. 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 She states this is being managed by her PCP. She wakes at a variable times bed at: Inconsistent in varies from 22:00 to 01:00 Breakfast: Skips Lunch: skips Dinner: skips After dinner: skips Other snacks: Liquids: Alcohol intake: rare nicotine: quitting marijuana: heavy daily drugs: in recovery for opiates & on suboxone caffeine: The patient notes that she is not routinely eating but is journaling the different foods that she eats which are mostly carbohydrates. She is not taking a protein supplement at this time. Exercise: walking & not scheduled LUCIA: 6 ESS: 5 GERD: 31 QOL: 118 PFSH Medical History Insomnia Social History (Updated 10/16/21 @ 10:42 by Martir Marie) Alcohol intake: current Patient Tobacco Use Status: Current everyday Tobacco user Tobacco use type: Cigarette Review of Systems Const All systems reviewed & are unremarkable except as noted in HPI and below Reports as per HPI Physical Exam The patient is non-toxic & in good spirits NC/AT, PERRLA, EOMI Mood, affect & judgment all appear appropriate Sclera anicteric conjunctiva pink and moist Oropharynx is clear with no aphthous ulcers, Mallampati class 4, mucous membranes moist Neck is supple with no masses, adenopathy or bruits Heart is regular, normal S1-S2 no rubs or murmurs Lungs are clear and equal anteriorly with no audible wheezing, rubs or dullness to percussion Abdomen is obese no demonstrable hernias. The lap band port is palpable in the right epigastrium with no erythema or tenderness. No HSM, rebound, rigidity, guarding, masses or bruits are present. Rectal exam is deferred Skin has good turgor and is free of rashes Extremities free of cyanosis clubbing edema Assessment & Plan Assessment & Plan (1) H/O laparoscopic adjustable gastric banding: Code(s): Z98.84 - Bariatric surgery status (2) Dysphagia: Code(s): R13.10 - Dysphagia, unspecified (3) Morbid obesity due to excess calories: Code(s): E66.01 - Morbid (severe) obesity due to excess calories (4) Nonalcoholic steatohepatitis (VELIZ): Code(s): K75.81 - Nonalcoholic steatohepatitis (VELIZ) (5) RUQ pain: Code(s): R10.11 - Right upper quadrant pain (6) GERD (gastroesophageal reflux disease): Code(s): K21.9 - Gastro-esophageal reflux disease without esophagitis (7) Non-restorative sleep: Code(s): G47.8 - Other sleep disorders (8) Opiate dependence: Code(s): F11.20 - Opioid dependence, uncomplicated (9) Bipolar 1 disorder: Code(s): F31.9 - Bipolar disorder, unspecified Plan The patient is reporting significant nausea and dysphagia. She also intermittently reports inability to tolerate liquids but noted that she is tolerating carbohydrate diet and offered to bring in her journal diet for the next visit. She is having no significant pain or difficulty with secretions at this point and notes that she canceled her scheduled EGD at [facility] for today in order to be seen here at [facility]. She does not appear acutely ill nor toxic. She is instructed to go to the lab for nonfasting labs and I have ordered a stat upper GI which will be done tomorrow. The patient noted that she would like a bypass and we discussed her history of nicotine use in the inherent risk of marginal ulcers, bleeding and perforation which can be life-threatening, so I would not endorse a bypass in her case. It is possible she may need the lap band explanted and she was instructed to report to the nearest emergency department if she is having inability to manage secretions. She is also been dealing with chronic abdominal complaints since I saw her last Oct, 2021 and notes that while this improved, she chronically has nausea that is not being managed. She is encouraged to contact her PCP if she feels that she needs antiemetics. The inherent risks of lap band removal including bleeding, weight gain and ongoing dysphagia if the scar tissue has disrupted normal esophageal physiology was reviewed. The patient seemed understand and will consider her options between now and her next visit in 2 weeks. Risks of abdominal wall hernia after removal of the lap band, especially in the setting of weight gain was also discussed I placed the patient on a 120 g liquid protein diet which will include Premier protein shakes since the pt was taking these for the [facility] bariatric program and has a supply at home. She is also instructed to purchase Flintstones chewable multivitamins and began taking 2 a day. Patient reports both significant GERD which is related to her lap band and may not improve after removal; she is having non restorative sleep and states she has witnessed apneic episodes so I have ordered a home sleep study. Will see the patient back to discuss the upper GI results and the patient's goals at her follow-up appointment. The requirement to lose 10%/25 lb if she wishes to entered the surgical weight loss program was discussed. The need for liver shrinking diet was discussed and the possibility that urgent lap band removal may be required based on her upper GI findings were discussed and apparently understood. Orders: Orders Comprehensive Met. Panel Today E66.01 - Morbid (severe) obesity due to excess calories, K21.9 - Gastro-esophageal reflux disease without esophagitis, K75.81 - Nonalcoholic steatohepatitis (VELIZ), R10.11 - Right upper quadrant pain, R13.10 - Dysphagia, unspecified, Z98.84 - Bariatric surgery status Hemoglobin A1c Today E66.01 - Morbid (severe) obesity due to excess calories, K21.9 - Gastro-esophageal reflux disease without esophagitis, K75.81 - Nonalcoholic steatohepatitis (VELIZ), R10.11 - Right upper quadrant pain, R13.10 - Dysphagia, unspecified, Z98.84 - Bariatric surgery status Nicotine and Metabolite Ur, Qt Today E66.01 - Morbid (severe) obesity due to excess calories, K21.9 - Gastro-esophageal reflux disease without esophagitis, K75.81 - Nonalcoholic steatohepatitis (VELIZ), R10.11 - Right upper quadrant pain, R13.10 - Dysphagia, unspecified, Z98.84 - Bariatric surgery status Prealbumin Today E66.01 - Morbid (severe) obesity due to excess calories, K21.9 - Gastro-esophageal reflux disease without esophagitis, K75.81 - Nonalcoholic steatohepatitis (VELIZ), R10.11 - Right upper quadrant pain, R13.10 - Dysphagia, unspecified, Z98.84 - Bariatric surgery status RT home sleep study Today E66.01 - Morbid (severe) obesity due to excess calories, G47.8 - Other sleep disorders, K21.9 - Gastro-esophageal reflux disease without esophagitis, K75.81 - Nonalcoholic steatohepatitis (VELIZ), R10.11 - Right upper quadrant pain, R13.10 - Dysphagia, unspecified, Z98.84 - Bariatric surgery status FL upper GI series Today E66.01 - Morbid (severe) obesity due to excess calories, K21.9 - Gastro-esophageal reflux disease without esophagitis, K75.81 - Nonalcoholic steatohepatitis (VELIZ), R10.11 - Right upper quadrant pain, R13.10 - Dysphagia, unspecified, Z98.84 - Bariatric surgery status C Reactive Protein Today E66.01 - Morbid (severe) obesity due to excess calories, K21.9 - Gastro-esophageal reflux disease without esophagitis, K75.81 - Nonalcoholic steatohepatitis (VELIZ), R10.11 - Right upper quadrant pain, R13.10 - Dysphagia, unspecified, Z98.84 - Bariatric surgery status Complete Blood Count Auto Diff Today E66.01 - Morbid (severe) obesity due to excess calories, K21.9 - Gastro-esophageal reflux disease without esophagitis, K75.81 - Nonalcoholic steatohepatitis (VELIZ), R10.11 - Right upper quadrant pain, R13.10 - Dysphagia, unspecified, Z98.84 - Bariatric surgery status Drug Screen Urine Today E66.01 - Morbid (severe) obesity due to excess calories, K21.9 - Gastro-esophageal reflux disease without esophagitis, K75.81 - Nonalcoholic steatohepatitis (VELIZ), R10.11 - Right upper quadrant pain, R13.10 - Dysphagia, unspecified, Z98.84 - Bariatric surgery status Referrals Nutrition/Dietitian Referral E66.01 - Morbid (severe) obesity due to excess calories, K21.9 - Gastro-esophageal reflux disease without esophagitis, K75.81 - Nonalcoholic steatohepatitis (VELIZ), R10.11 - Right upper quadrant pain, R13.10 - Dysphagia, unspecified, Z98.84 - Bariatric surgery status Behavioral Health Referral E66.01 - Morbid (severe) obesity due to excess calories, K21.9 - Gastro-esophageal reflux disease without esophagitis, K75.81 - Nonalcoholic steatohepatitis (VELIZ), R10.11 - Right upper quadrant pain, R13.10 - Dysphagia, unspecified, Z98.84 - Bariatric surgery status Coding Level of Care Code Est Pt Level 5 (00412) Diagnoses H/O laparoscopic adjustable gastric banding Z98.84 Dysphagia R13.10 Morbid obesity due to excess calories E66.01 Nonalcoholic steatohepatitis (VELIZ) K75.81 RUQ pain R10.11 GERD (gastroesophageal reflux disease) K21.9 Non-restorative sleep G47.8 Opiate dependence F11.20 Bipolar 1 disorder F31.9
[2023-02-27 12:52] VITALS: BP 132/84; PULSE 81; TEMP 36.1; O2SAT 99; BMI 41.3
== END 2023-02-27 14:18 | disposition home or self-care (01) ==
PROVIDERS: PCP Nurse Practitioner Family; Visit Provider Surgery
DX: E66.01 Morbid (severe) obesity due to excess calories (principal); Z68.41 Body mass index [BMI] 40.0-44.9, adult; Z98.84 Bariatric surgery status; K21.9 Gastro-esophageal reflux disease without esophagitis
CPT/HCPCS: 99215

== ENCOUNTER 2023-02-28 09:52 | Outpatient (REF) | payer MEDICAID, SELFPAY ==
--- NOTE | ~2023-02-28 | FL_ITS ---
EXAMINATION: XR GI SERIES CLINICAL INFORMATION: Bariatric surgery status COMPARISON: Previous exam December 2021 TECHNIQUE: Upper GI was performed using thin and thick barium and effervescent granules. FINDINGS: Esophageal motility is normal. No hernia or reflux is seen. There is a gastric lap band. The phi angle measures 35 degrees without evidence of slippage. There is a small amount of proximal stomach seen superior to the gastric lap band. No fold thickening, mass, ulcer or stricture is seen. FLUOROSCOPY TIME: 0.4 seconds DOSE AREA PRODUCT: 943 uGy-m2 (microgray-meter squared) total dose 24 mgy 36 saved fluoroscopic images. FL/FL upper GI series IMPRESSION: Gastric lap band in place. Phi angle measures 35 degrees without evidence of slippage. There is small amount of proximal stomach superior to the gastric lap band.
== END 2023-02-28 09:53 | disposition home or self-care (01) ==
LOC: HO.XRAY 09:52
PROVIDERS: PCP Nurse Practitioner Family; Visit Provider Surgery
DX: R13.10 Dysphagia, unspecified (principal); E66.01 Morbid (severe) obesity due to excess calories; K75.81 Nonalcoholic steatohepatitis (NASH); R10.11 Right upper quadrant pain; K21.9 Gastro-esophageal reflux disease without esophagitis; Z98.84 Bariatric surgery status
CPT/HCPCS: 74240

== ENCOUNTER → 2023-02-28 09:53 | Outpatient (BNV) | payer MEDICAID, SELFPAY | PROVIDERS: PCP Nurse Practitioner Family; Visit Provider Radiology Diagnostic Radiology | DX: Z98.84 Bariatric surgery status (principal) | CPT/HCPCS: 74246 ==

== ENCOUNTER 2023-03-13 13:23 | Outpatient (AMB) | payer MEDICAID, SELFPAY ==
--- NOTE | 2023-03-13 13:29 | MHC.OFFVISWM ---
Intake VS Expanded 03/13/23 13:37 Height 5 ft 6 in Weight 248 lb 6.4 oz BMI 40.1 BP 123/84 Blood Pressure Location Rt brachial Blood Pressure Position Sitting Pulse 98 Pulse Source Pulse Oximeter Temp 96.0 F L Temperature Source Tympanic Pulse Oximetry 95 Oxygen Delivery Method Room Air Body Fat 119.0 Body Fat Percentage 48.0 Free Fat Mass 129.2 Muscle Mass 122.6 Visceral Mass 13.0 Water Mass 92.4 BMR 1,841 Intake Visit Reasons: (OV) SWL Consult Allergies cephalexin [From KEFLEX] Allergy (Intermediate, Verified 03/13/23 13:33) HIVES ibuprofen Allergy (Unknown, Verified 03/13/23 13:33) Abdominal Pain NSAIDS (Non-Steroidal Anti-Inflamma [NSAIDS (NON-STEROIDAL ANTI-INFLAMMA] Adverse Reaction (Intermediate, Verified 03/13/23 13:33) GI UPSET Motrin Allergy (Unknown, Uncoded 03/13/23 13:33) Abdominal Pain HPI HPI Comments History of Present Illness Details The patient is a 40-year-old woman with a history of obesity and a BMI of 43.7 who was been sent by way of the emergency department at [facility] in Oct, 2021, because of right upper quadrant pain that radiates to her back. The patient notes that this pain has been present for at least 5 years. She is unaware of any association to food. She was seen for these complaints Oct, 2021 and did not f/u with labs or testing noting this problem resolved. This is a 42 year old woman who is interested SWL program with SWL classes, but notes her band & removal may be a greater concern. Her goal is to establish healthier living plan and maintain a healthy weight. She reports first being concerned about her weight several years ago & has been in 3 SWL programs including [facility] where her lap band was placed in 2013, [facility] [place] and then again this year with Dr. Kumar at [facility]. She has tried multiple methods of weight loss including lap band, fad diets, WW without permanent results. She states she was scheduled to have an EGD today by Dr. Kumar, however due to ongoing personal conflict with Dr. Kumar, she decided to drop out of the program and here. She presented on 02/27/23 at a weight of 256.0 lb/BMI 41.3. Today, she is 248.4/BMI 40.1. Her current meal plan is Premier shakes, 120gm/day as a goal. She reports ongoing dysphagia and nausea. She notes that the nausea wakes her from sleep at times. She notes that her nausea and vomiting is worse with both Vyvanse (which she stopped) & her marijuana use. We discussed marijuana related withdrawal with significant nausea and vomiting and she is interested in discussing this and tapering off for health reasons. She noted that she heard of this and had questioned whether not she was affected given her daily heavy use. 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 She states this is being managed by her PCP. She notes continued variability in her schedule and we discussed transitioning her meal plan to celebrate protein shakes and she was given a meal plan but noted that she will continue on the premixed Premier shakes in the meantime. Healthy protein options were also reviewed and handout provided. She wakes at a variable times bed at: Inconsistent in varies from 22:00 to 01:00 Breakfast: Skips Lunch: skips Dinner: skips After dinner: skips Other snacks: Liquids: Alcohol intake: rare nicotine: quitting marijuana: heavy daily drugs: in recovery for opiates & on suboxone caffeine: denies The patient notes that she is not routinely eating but is journaling the different foods that she eats which are mostly carbohydrates. She is not taking a protein supplement at this time. Exercise: walking & not scheduled LUCIA: 6 ESS: 5 GERD: 31 QOL: 118 PFSH Medical History Insomnia Surgical History Hx of excision of dermoid cyst History of liver biopsy Hx of dilation and curettage Hx of tonsillectomy Hx of hysterectomy H/O laparoscopic adjustable gastric banding Social History Alcohol intake: current Patient Tobacco Use Status: Current everyday Tobacco user Tobacco use type: Cigarette Review of Systems Const All systems reviewed & are unremarkable except as noted in HPI and below Reports as per HPI Physical Exam The patient is accompanied by her friend/RN POOL and gave permission to speak in front of her She is in no acute respiratory distress Abdomen is obese She is wearing a Holter monitor Results Reviewed Results Reviewed: Diagnostic imaging Upper GI dated 02/28/2023 images and report reviewed: Phi angle is 35 degrees and there is no evidence of free air, perforation, esophageal dysmotility and there is prompt emptying of the contrast through the lap band Nonfasting labs show a hemoglobin of 14.3, white blood cell count 8.6, platelet count 293k Glucose 103 BUN 10, Cr 0.81 CRP 1.38 Total bilirubin normal AST 24 ALT 21 Pre-albumin low at 14.0 Urine nicotine test is outstanding the patient is continuing to smoke but notes that she is smoking few are cigarettes Urine tox screen is positive for amphetamine consistent with her Vyvanse and positive for THC consistent with her self-reported heavy use Assessment & Plan Assessment & Plan (1) H/O laparoscopic adjustable gastric banding: Comment: 09/24/13 Code(s): Z98.84 - Bariatric surgery status (2) Bipolar 1 disorder: Code(s): F31.9 - Bipolar disorder, unspecified (3) Opiate dependence: Code(s): F11.20 - Opioid dependence, uncomplicated (4) Non-restorative sleep: Code(s): G47.8 - Other sleep disorders (5) Dysphagia: Code(s): R13.10 - Dysphagia, unspecified (6) Nonalcoholic steatohepatitis (VELIZ): Code(s): K75.81 - Nonalcoholic steatohepatitis (VELIZ) (7) Morbid obesity due to excess calories: Code(s): E66.01 - Morbid (severe) obesity due to excess calories (8) RUQ pain: Code(s): R10.11 - Right upper quadrant pain (9) GERD (gastroesophageal reflux disease): Code(s): K21.9 - Gastro-esophageal reflux disease without esophagitis Plan We discussed options at this point including weight loss purely to remove the lap band verses weight loss/revision surgery in a possible sleeve which may or may not be an option at the time of band removal. The need to consult Dr. Man for his input when she has lost an adequate amount of weight, stopped using nicotine and had an upper endoscopy to help direct her care was reviewed in the patient stated that she understood. Patient was congratulated on her interval weight loss and healthy choices regarding yogurt, lean protein and a meal plan via The Right Mamie were provided The importance of exercise and an exercise plan was provided to the patient The inherent risks of upper endoscopy and possible biopsy which include, but are not limited to bleeding, perforation or injury that could require emergent surgery, aspiration that could cause pneumonia, the fact that her symptoms may not be related to her band may be secondary to marijuana use, bacterial infection of her stomach or her Vyvanse was discussed. The patient seems to understand her options and would like to proceed with an upper endoscopy. She will follow-up with me at the end of March. In the remainder fasting labs for bariatric fasting labs are ordered and the importance of being nicotine free prior to considering band removal was again reviewed and apparently understood. The patient is advised to transition to celebrate rebuild protein shakes but needs to check regarding her food stamps and financial means; in the meantime, she will continue the Premier protein shakes. We discussed her upper GI and the fact there is no apparent problem regarding her band and there is no obvious urgent/emergent need to operate. The importance of the upper endoscopy to direct her care was discussed and apparently understood. The possibility that her ongoing nausea, vomiting and retching may be related to her heavy THC use was discussed and she will discuss this with her counselor. This is important since removal of the band will not likely affect her symptoms. The risk of weight regain if maladaptive eating continues postoperatively or relapses was also discussed with the patient and apparently understood. Preop Bariatric Plan 1.?? Nutritional counseling:?Be sure to careful read the number of scoops per shake if you are using powdered mix.? Substitute Celebrate Rebuild Protein Shakes & Bars for Zone Perfect bar in the printout. Start with? Celebrate ReBuild Protein shakes First shake (1.5 scoops in 12 oz unsweetened almond milk) at 7-9am Second shake, (1.5 scoops in 12 oz unsweetened almond milk) at Noon-2pm 1 protein bar Celebrate ReBuild bars at 3-4pm. Dinner at 7pm (10 forks of protein and 10 forks of salad/vegetables). Meal to include lean meat (beef, fish, pork, turkey, chicken), cooked vegetables or a salad with olive oil and/or fruits (berries, pears, apples, kiwi). Avoid breads, potatoes, starches, rice, pasta, desserts.? The sooner you decrease carbohydrates & excess fats, the sooner you will reach your goal. 2.?? You must closely monitor your blood glucose/pressure at least twice a day. After dinner snacking should be Celebrate ReBuild protein shake, only if needed. Try to drink 64 oz of water daily and avoid soda and juices. ?2. Each shake would be drunk slowly, in a period of 2 hours. ?3. Cut each bar in 4 pieces and eat each piece in 30 min to make each bar last 2 hours. ?4. I emphasized the importance of measuring accurately the food portion and measure it carefully when serving the food on the plate ?5. The meal portions include 10 full-size forks of meat and 10 full-size forks of salad. You should always eat the meat portion but you can skip the forks of salad/vegetables and replace with a fruit if you like. The less you do it the better weight loss will be. ?6. One full-size fork is what can be scooped on the fork without falling aside and not what can be bit with the fork. Use regular forks like those you find in a typical restaurant. ?7.? Please send me weight measurements as soon as possible and then once a week. Always include your diet and exercise plan. Alternatively come weekly at the office for weight checks and send me the measurements. ?8. Exercise counseling:? Begin by watching a stretching for beginner?s video.? Start slowly and begin to stretch your muscles.? You should do this before and after each exercise session to prevent injury.? Please use the exercise equipment at your building. Start elliptical with a resistance of 2. Increase resistance by 1 every 3 min to your most comfortable resistance with a max resistance of 8.? Reduce the resistance by 1 every 3 minutes back down to 2 and repeat cycles for 300 calories. Alternatively, start treadmill with a speed of 3.0 and incline of 0, increasing incline by 1 every 3 minutes to the highest comfortable level (max 6 for now) then decrease in the same fashion.? Repeat process to a goal of 300 calories.? Goal of 2000 calories burned or more weekly.? You may also consider use of the stationary bike.? The easiest would be to choose the fat-burn or interval training program on the machine and do this until you reach the 300 calorie goal.? Alternatively, you can manually adjust the resistance in a similar fashion as mentioned above, (resistance of 2-8 with a goal speed of 12 mph).?Tracking calories is essential. 9. Alternatively, start walking outside daily, tracking calories with a goal of 300 calories per day, daily. If [id number] is needed, you can start there, but the goal is DAILY. You can download the mamie?Genome?which can track your time, distance and calories while walking outside.? You press start in the mamie when you start and then stop when you are finished. ? 10.? It is important to avoid and for at least 18 months postoperatively and it has been discussed at the information session 11. Please get labs, EKG and chest X-Ray within 1 week. 12. Discussed and answered all questions regarding?obtained consent to participate in the [place] [facility]?Registry. 13. Please follow the diet plan exactly, without any change.? If you do not like something about the plan or you feel hungry, you need to communicate with me so I can help you revise the plan.? You should not change the plan yourself. 14. Goal is to lose 1.5-2.0 lbs/week 15. Goal is to lose 10% of your weight before surgery, which is about 25 lbs. Ultimate weight goal: 230 lbs before surgery.? Remember that you may need to lose more weight to qualify for surgery if your abdominal ultrasound shows your liver or spleen are enlarged or if your upper GI shows a hiatal hernia. IF YOU EXPERIENCE PAIN, SEVERE SHORTNESS OF BREATH, DIZZINESS OR LIGHTHEADEDNESS, OR SIGNIFICANT CONSTIPATION OR DIARRHEA, (DIARRRHEA CAN OCCUR FROM SOME ARTIFICIAL SWEETENERS) PLEASE NOTIFY THE OFFICE! If you have diabetes, you will need to follow your blood sugars at least twice a day (morning & evening, or as needed if you are shaky/sweaty or feel hypoglycemic).? Please discuss with Dr. Fry.? Text Dr. Fry at [phone] If you have hypertension/high blood pressure, you will need to monitor your blood pressure regarding adjusting medications.? Please discuss with Dr. Fry.? We encourage patients to track calories burned while exercising as this is a more proven method verses ?steps? or ?miles walked? apps.? Patients who have dedicated exercise time at regular intervals throughout the week have greater weight loss then patients who hope that being active at work or through their day will result in weight loss.? Your body has adapted to your current life & you need to add regular exercise, just like you added a healthier diet for your health goals. Resistance training (weight lifting) is helpful to reach your goal, strengthen your bones or if your weight loss has stalled (reached a plateau) by both burning calories & adding muscle, which increases your metabolism.? Chest, back & thigh muscles can be exercised at home or at a gym.? Please discuss your goals with Dr. Fry or a qualified show dog trainer at your local gym. YouTube options: ?Sit to Be Fit, Daily Burn, Debora, Walk away the pounds, [employer] Websites: Sit and Be Fit? https://www.sitandbefit.org/ Go For Life https://vl8redg.david.nih.gov/ Orders: Orders C Reactive Protein Today E66.01 - Morbid (severe) obesity due to excess calories, F11.20 - Opioid dependence, uncomplicated, F31.9 - Bipolar disorder, unspecified, G47.8 - Other sleep disorders, K21.9 - Gastro-esophageal reflux disease without esophagitis, K75.81 - Nonalcoholic steatohepatitis (VELIZ), R10.11 - Right upper quadrant pain, R13.10 - Dysphagia, unspecified, Z98.84 - Bariatric surgery status Lipid Panel Today E66.01 - Morbid (severe) obesity due to excess calories, F11.20 - Opioid dependence, uncomplicated, F31.9 - Bipolar disorder, unspecified, G47.8 - Other sleep disorders, K21.9 - Gastro-esophageal reflux disease without esophagitis, K75.81 - Nonalcoholic steatohepatitis (VELIZ), R10.11 - Right upper quadrant pain, R13.10 - Dysphagia, unspecified, Z98.84 - Bariatric surgery status Vitamin B1 Today E66.01 - Morbid (severe) obesity due to excess calories, F11.20 - Opioid dependence, uncomplicated, F31.9 - Bipolar disorder, unspecified, G47.8 - Other sleep disorders, K21.9 - Gastro-esophageal reflux disease without esophagitis, K75.81 - Nonalcoholic steatohepatitis (VELIZ), R10.11 - Right upper quadrant pain, R13.10 - Dysphagia, unspecified, Z98.84 - Bariatric surgery status Ferritin Today E66.01 - Morbid (severe) obesity due to excess calories, F11.20 - Opioid dependence, uncomplicated, F31.9 - Bipolar disorder, unspecified, G47.8 - Other sleep disorders, K21.9 - Gastro-esophageal reflux disease without esophagitis, K75.81 - Nonalcoholic steatohepatitis (VELIZ), R10.11 - Right upper quadrant pain, R13.10 - Dysphagia, unspecified, Z98.84 - Bariatric surgery status H Pylori Breath Test Today E66.01 - Morbid (severe) obesity due to excess calories, F11.20 - Opioid dependence, uncomplicated, F31.9 - Bipolar disorder, unspecified, G47.8 - Other sleep disorders, K21.9 - Gastro-esophageal reflux disease without esophagitis, K75.81 - Nonalcoholic steatohepatitis (VELIZ), R10.11 - Right upper quadrant pain, R13.10 - Dysphagia, unspecified, Z98.84 - Bariatric surgery status Zinc Today E66.01 - Morbid (severe) obesity due to excess calories, F11.20 - Opioid dependence, uncomplicated, F31.9 - Bipolar disorder, unspecified, G47.8 - Other sleep disorders, K21.9 - Gastro-esophageal reflux disease without esophagitis, K75.81 - Nonalcoholic steatohepatitis (VELIZ), R10.11 - Right upper quadrant pain, R13.10 - Dysphagia, unspecified, Z98.84 - Bariatric surgery status Vitamin A Today E66.01 - Morbid (severe) obesity due to excess calories, F11.20 - Opioid dependence, uncomplicated, F31.9 - Bipolar disorder, unspecified, G47.8 - Other sleep disorders, K21.9 - Gastro-esophageal reflux disease without esophagitis, K75.81 - Nonalcoholic steatohepatitis (VELIZ), R10.11 - Right upper quadrant pain, R13.10 - Dysphagia, unspecified, Z98.84 - Bariatric surgery status Vitamin D 25-OH Total Today E66.01 - Morbid (severe) obesity due to excess calories, F11.20 - Opioid dependence, uncomplicated, F31.9 - Bipolar disorder, unspecified, G47.8 - Other sleep disorders, K21.9 - Gastro-esophageal reflux disease without esophagitis, K75.81 - Nonalcoholic steatohepatitis (VELIZ), R10.11 - Right upper quadrant pain, R13.10 - Dysphagia, unspecified, Z98.84 - Bariatric surgery status Insulin Today E66.01 - Morbid (severe) obesity due to excess calories, F11.20 - Opioid dependence, uncomplicated, F31.9 - Bipolar disorder, unspecified, G47.8 - Other sleep disorders, K21.9 - Gastro-esophageal reflux disease without esophagitis, K75.81 - Nonalcoholic steatohepatitis (VELIZ), R10.11 - Right upper quadrant pain, R13.10 - Dysphagia, unspecified, Z98.84 - Bariatric surgery status TSH reflex Free T4 Today E66.01 - Morbid (severe) obesity due to excess calories, F11.20 - Opioid dependence, uncomplicated, F31.9 - Bipolar disorder, unspecified, G47.8 - Other sleep disorders, K21.9 - Gastro-esophageal reflux disease without esophagitis, K75.81 - Nonalcoholic steatohepatitis (VELIZ), R10.11 - Right upper quadrant pain, R13.10 - Dysphagia, unspecified, Z98.84 - Bariatric surgery status Vitamin B12 and Folate Today E66.01 - Morbid (severe) obesity due to excess calories, F11.20 - Opioid dependence, uncomplicated, F31.9 - Bipolar disorder, unspecified, G47.8 - Other sleep disorders, K21.9 - Gastro-esophageal reflux disease without esophagitis, K75.81 - Nonalcoholic steatohepatitis (VELIZ), R10.11 - Right upper quadrant pain, R13.10 - Dysphagia, unspecified, Z98.84 - Bariatric surgery status IRON PROFILE Today E66.01 - Morbid (severe) obesity due to excess calories, F11.20 - Opioid dependence, uncomplicated, F31.9 - Bipolar disorder, unspecified, G47.8 - Other sleep disorders, K21.9 - Gastro-esophageal reflux disease without esophagitis, K75.81 - Nonalcoholic steatohepatitis (VELIZ), R10.11 - Right upper quadrant pain, R13.10 - Dysphagia, unspecified, Z98.84 - [facility]ric [facility] E[facility].01 - Morbid (severe) obesity due to excess calories, F11.20 - Opioid dependence, uncomplicated, F31.9 - Bipolar disorder, unspecified, G47.8 - Other sleep disorders, K21.9 - Gastro-esophageal reflux disease without esophagitis, K75.81 - Nonalcoholic steatohepatitis (VELIZ), R10.11 - Right upper quadrant pain, R13.10 - Dysphagia, unspecified, Z98.84 - Bariatric surgery status Referrals Nutrition/Dietitian Referral E66.01 - Morbid (severe) obesity due to excess calories, F11.20 - Opioid dependence, uncomplicated, F31.9 - Bipolar disorder, unspecified, G47.8 - Other sleep disorders, K21.9 - Gastro-esophageal reflux disease without esophagitis, K75.81 - Nonalcoholic steatohepatitis (VELIZ), R10.11 - Right upper quadrant pain, R13.10 - Dysphagia, unspecified, Z98.84 - Bariatric surgery status Behavioral Health Referral E66.01 - Morbid (severe) obesity due to excess calories, F11.20 - Opioid dependence, uncomplicated, F31.9 - Bipolar disorder, unspecified, G47.8 - Other sleep disorders, K21.9 - Gastro-esophageal reflux disease without esophagitis, K75.81 - Nonalcoholic steatohepatitis (VELIZ), R10.11 - Right upper quadrant pain, R13.10 - Dysphagia, unspecified, Z98.84 - Bariatric surgery status Coding Level of Care Code Est Pt Level 4 (46316) Diagnoses H/O laparoscopic adjustable gastric banding Z98.84 Bipolar 1 disorder F31.9 Opiate dependence F11.20 Non-restorative sleep G47.8 Dysphagia R13.10 Nonalcoholic steatohepatitis (VELIZ) K75.81 Morbid obesity due to excess calories E66.01 RUQ pain R10.11 GERD (gastroesophageal reflux disease) K21.9
[2023-03-13 13:37] VITALS: BP 123/84; PULSE 98; TEMP 35.6; O2SAT 95; BMI 40.1
== END 2023-03-13 14:07 | disposition home or self-care (01) ==
PROVIDERS: PCP Nurse Practitioner Family; Visit Provider Surgery
DX: E66.01 Morbid (severe) obesity due to excess calories (principal); Z68.41 Body mass index [BMI] 40.0-44.9, adult; Z90.3 Acquired absence of stomach [part of]; Z98.84 Bariatric surgery status; G47.8 Other sleep disorders; R13.10 Dysphagia, unspecified; K75.81 Nonalcoholic steatohepatitis (NASH); R10.11 Right upper quadrant pain; K21.9 Gastro-esophageal reflux disease without esophagitis
CPT/HCPCS: 99214

== ENCOUNTER → 2023-03-13 13:23 | Outpatient (BNVA) | payer MEDICAID, SELFPAY | PROVIDERS: PCP Nurse Practitioner Family; Visit Provider Surgery | DX: E66.01 Morbid (severe) obesity due to excess calories (principal); Z68.41 Body mass index [BMI] 40.0-44.9, adult; Z98.84 Bariatric surgery status; F31.9 Bipolar disorder, unspecified; F11.20 Opioid dependence, uncomplicated; G47.8 Other sleep disorders; R13.10 Dysphagia, unspecified; K75.81 Nonalcoholic steatohepatitis (NASH); R10.11 Right upper quadrant pain; K21.9 Gastro-esophageal reflux disease without esophagitis | CPT/HCPCS: 99212 ==

== ENCOUNTER 2023-03-20 08:23 | Day surgery (SDC) | payer MEDICAID, SELFPAY ==
--- NOTE | 2023-03-19 14:02 | MHC.SHP ---
Pre-Procedural Eval Section A Date of Service: 03/19/23 The patient is an INPATIENT: No The History & Physical has been completed within 30 days and I have reviewed it.: Yes Section B Chief Complaint: Gastro-esophageal reflux disease without esophagit Allergies: Allergies Allergy/AdvReac Type Severity Reaction Status Date / Time cephalexin [From KEFLEX] Allergy Intermediate HIVES Verified 03/13/23 13:33 ibuprofen Allergy Unknown Abdominal Verified 03/13/23 13:33 Pain NSAIDS (Non-Steroidal AdvReac Intermediate GI UPSET Verified 03/13/23 13:33 Anti-Inflamma [NSAIDS (NON-STEROIDAL ANTI-INFLAMMA] Motrin Allergy Unknown Abdominal Uncoded 03/13/23 13:33 Pain Plan I have reviewed the history and physical and performed a pertinent physical examination on my patient. No changes have occurred unless specified. Time Spent With Patient Time: Total time managing care of this patient today ____ minutes.
[2023-03-20 06:50] VITALS: BMI 40.0
[2023-03-20 08:43] VITALS: BP 97/70; PULSE 78; RESP 20; TEMP 36.6; O2SAT 98
--- NOTE | 2023-03-20 08:43 | HO.ANESPROP2 ---
HPI - Anesthesia Eval Consult details Narrative: 42 yo female patient for EGD PMFSH Active Problems Active Problems: All Active Problems (Updated 03/20/23 @ 08:43 by Samina Gayle MD) Bipolar 1 disorder (Acute) Opiate dependence (Acute) Non-restorative sleep (Acute) Dysphagia (Acute) Nonalcoholic steatohepatitis (VELIZ) (Acute) Morbid obesity due to excess calories BMI 40 RUQ pain (Acute) GERD (gastroesophageal reflux disease) (Acute) H/O laparoscopic adjustable gastric banding (Acute) Denies BENNETT Past Medical History Medical History VELIZ (nonalcoholic steatohepatitis) Bipolar disorder GERD (gastroesophageal reflux disease) Insomnia Family History Family history of problems with anesthesia: No Surgical History Surgical History Hx of excision of dermoid cyst History of liver biopsy Hx of dilation and curettage Hx of tonsillectomy Hx of hysterectomy H/O laparoscopic adjustable gastric banding History of Problems with Anesthesia: No Social History Social History (Updated 03/20/23 @ 09:15 by Samina Gayle MD) Alcohol intake: current Alcohol intake frequency: holidays/special occasions only Patient Tobacco Use Status: Former Tobacco user Tobacco use type: Cigarette Substance Use Type: Marijuana Meds Allergies Allergy/AdvReac Type Severity Reaction Status Date / Time cephalexin [From KEFLEX] Allergy Intermediate HIVES Verified 03/13/23 13:33 ibuprofen Allergy Unknown Abdominal Verified 03/13/23 13:33 Pain NSAIDS (Non-Steroidal AdvReac Intermediate GI UPSET Verified 03/13/23 13:33 Anti-Inflamma [NSAIDS (NON-STEROIDAL ANTI-INFLAMMA] Motrin Allergy Unknown Abdominal Uncoded 03/13/23 13:33 Pain Active Medications: Current Medications Lactated Ringer's (Lr) 1,000 mls @ 100 mls/hr IVCONT .Q10H [facility] Home Medications Medication Instructions Recorded Confirmed Last Taken Type acyclovir 400 mg tablet 400 mg PO TID 10/16/21 10/16/21 Unknown History albuterol sulfate 90 mcg/actuation 2 puff PO Q4H 10/16/21 10/16/21 Unknown History aerosol inhaler (ProAir HFA) clonidine HCl 0.2 mg tablet 0.2 mg PO QID PRN 10/16/21 10/16/21 Unknown History escitalopram oxalate 20 mg tablet 20 mg PO DAILY 10/16/21 10/16/21 Unknown History gabapentin 100 mg capsule 100 mg PO TID 10/16/21 10/16/21 Unknown History hydroxyzine HCl 25 mg tablet 25 mg PO TID PRN 10/16/21 10/16/21 Unknown History omeprazole 20 mg capsule,delayed 20 mg PO DAILY 10/16/21 10/16/21 Unknown History release sumatriptan succinate 50 mg tablet 50 mg PO DAILY PRN migraine 10/16/21 10/16/21 Unknown History varenicline 1 mg tablet 1 mg PO BID 10/16/21 10/16/21 Unknown History buprenorphine 2 mg-naloxone 0.5 mg 2 mg sublingual BID 02/27/23 Unknown History sublingual film (Suboxone) lisdexamfetamine 30 mg capsule 30 mg PO QAM 02/27/23 Unknown History (Vyvraven) Exam Exam Date and Time: March 20, 2023 0843 Height,Weight and Vital Signs: Height 5 ft 6 in Weight 112.491 kg Vital Signs Temp Pulse Resp BP Pulse Ox O2 Del Method 03/20/23 08:43 98 F 78 20 97/70 98 Room Air Airway Mallampati Class: III (Small mouth) TM Dist: >3cm Neck ROM: Full Loose/Missing/Broken Teeth: Yes (Broken tooth top right back. Denies loose teeth) Heart: RRR Lungs: CTAB Assessment and Plan Assessment Anesthesia Assessment: Anesthesia Plan Discussed and Chart Reviewed Final Anesthetic Review Family History of Problems with Anesthesia: No History of Problems with Anesthesia: No NPO: Yes ASA Class: III Final Preanesthetic Review: No Changes in Pt Med Stat, Meds/Allgs Chart Reviewed, Consent Obtained/Reviewed and Anes Risks/Benef Reviewed Patient Risk: Intermediate Procedure Risk: Low Assessment/Block/Sedation in SS: Assess/Block/Sedation-SS Anesthetic Plan Anesthetic Plan: GA and MAC: Disposition: Standard PACU
--- NOTE | 2023-03-20 09:17 | P.OP_ITS ---
Operative Note Operative Note Date of Service: 03/20/23 Narrative: Preop diagnosis: [Status post lap band, 2013 at [facility]; pain, nausea, vomiting and dysphagia] Postop diagnosis: [Food (vegetable matter & food debris in stomach; no obvious evidence of band erosion at insertion--limited study] Procedure: [Esophagogastroscopy, duodenoscopy aborted due to retained food] Surgeon: Myron Fry MD Assist: [] Anesthesia: [MAC] Estimated blood loss: [3cc] Specimen: [none] Intraoperative findings: [No obvious pathology/band erosion was noted at insertion of the gastroscope; below the gastric band, vegetable matter and food debris mandated aborting procedure due to risk of aspiration. Repeat EGD with biopsies for H pylori with a minimum of 24 hours on a liquid diet will be discussed with the patient at her follow-up] Indications: [The patient is a 42-year-old woman who reports a history of obesity, cigarette smoking, self-reported heavy daily marijuana use, methadone treatment for back pain, history of substance use disorder, who had a lap band placed at [facility] in 2013. Following some successful weight loss, she resumed her preoperative diet and regained weight. She was sent to my office Oct, 2021 reporting 5 years of abdominal and back pain and biliary dyskinesia workup was ordered, but the patient did not follow up. She reestablish contact February, on the day she was scheduled to have an EGD with Dr. Kumar. The patient was requesting evaluation and consideration for revision bariatric surgery, including band removal due to inability to tolerate her diet, ongoing pain and dysphagia and weight gain. The importance of healthy diet, increased activity, nicotine cessation, substance use cessation and decreasing her heavy marijuana use before any consideration would be made for revision surgery was discussed. My opinion that the patient is not a candidate for gastric bypass given her ongoing nicotine and substance use issues was discussed and the patient wanted to explore sleeve gastrectomy. Patient noted that she has dropped out of three previous bariatric programs: [facility] with Dr. Kumar and [facility]'s program with Dr. Kumar where her EGD was scheduled for 03/08. Upper GI done at [facility] February, showed normal esophageal function, no GERD, no significant emergent pathology, no retained food/bezoar and the patient has reported ongoing symptoms of dysphagia, vomiting but notes that the symptoms are improving off of Vyvanse and as she is weaning her daily marijuana use. Since her symptoms could represent band erosion which would mandate urgent surgery, we discussed an upper endoscopy as had previously been scheduled by her prior bariatric surgeon for February,, when the patient canceled/dropped out of the [employer] program. The risks inherent to EGD and possible biopsy including but not limited to: Bleeding that could require repeat endoscopy or blood transfusion, aspiration that could cause pneumonia and need for admission, perforation or injury that could require emergent surgery, delayed recognition of complications, discussion of band removal without revision surgery, persistence of her symptoms which may be due to other causes, possibility of a normal study were all discussed and apparently understood. The patient's questions seemed to be satisfactorily answered and she wanted to proceed. We have also discussed the need to demonstrate and confirm nicotine cessation, tapering of her heavy marijuana use, substance use testing and weight loss with exercise and minimum of 10% weight loss to consider revision surgery.] Procedure: [The patient was identified in the preoperative holding area and again an operating suite 6. An appropriate time-out was performed while the patient was lucid and the patient was then placed in left lateral decubitus position with a bite block in place. Following successful administration of MAC anesthesia by the Department of Anesthesia, the Olympus 190 gastroscope was inserted per os into the esophagus under direct vision. The scope is then advanced into the stomach where indentation superior to the lap band was noted with no obvious erosion or ulcers. The scope was advanced into the body of the stomach where vegetable matter/food debris and some secretions with no blood were noted. Since it was unsafe to advance the scope due to aspiration risk, the fluid was aspirated as best as possible given the food debris the gas aspirated to decompress the stomach and the scope was withdrawn. Biopsies: not done The patient tolerated the procedure well and had no desaturations through the procedure.] At the patient's request, I contacted __ at __ to apprise them of the findings. Their questions seemed to be satisfactorily answered.]
[2023-03-20 09:57] VITALS: BP 107/72; PULSE 74; RESP 16; TEMP 36.2; O2SAT 94
[2023-03-20 10:12] VITALS: BP 95/68; PULSE 73; RESP 14; O2SAT 97
[2023-03-20 10:27] VITALS: BP 100/58; PULSE 69; RESP 14; TEMP 36.1; O2SAT 99
== END 2023-03-20 11:42 | disposition home or self-care (01) ==
LOC: HO.SSS 08:24
PROVIDERS: PCP Nurse Practitioner Family; Visit Provider Surgery
PROC: 0DJ08ZZ Inspection of Upper Intestinal Tract, Via Natural or Artificial Opening Endoscopic (ICD-10-PCS; CPT 43235; principal; 2023-03-20 09:40)
DX: K21.9 Gastro-esophageal reflux disease without esophagitis (principal); R13.10 Dysphagia, unspecified; R11.2 Nausea with vomiting, unspecified; F12.90 Cannabis use, unspecified, uncomplicated; G89.29 Other chronic pain; M54.9 Dorsalgia, unspecified; G47.00 Insomnia, unspecified; E66.01 Morbid (severe) obesity due to excess calories; Z68.41 Body mass index [BMI] 40.0-44.9, adult; Z79.891 Long term (current) use of opiate analgesic; Z98.84 Bariatric surgery status; F17.210 Nicotine dependence, cigarettes, uncomplicated
CPT/HCPCS: 43235; J3010

== ENCOUNTER → 2023-03-20 08:23 | Outpatient (BNV) | payer MEDICAID, SELFPAY | PROVIDERS: PCP Nurse Practitioner Family; Visit Provider Surgery | DX: R13.10 Dysphagia, unspecified (principal); R11.2 Nausea with vomiting, unspecified; Z98.84 Bariatric surgery status | CPT/HCPCS: 43235 ==

== ENCOUNTER 2023-04-03 09:12 | Outpatient (REF) | payer MEDICAID, SELFPAY ==
--- NOTE | ~2023-04-03 | US_ITS ---
EXAMINATION: US COMPLETE ABDOMEN WITH LIVER ELASTOGRAPHY CLINICAL INFORMATION: Morbid obesity. COMPARISON: None available. TECHNIQUE: Real-time imaging of the abdominal viscera. Noninvasive ultrasound liver fibrosis assessment is performed using Katerine ElastPQ point quantification shear wave elastography (2D-SWE) with a C5-2 MHz transducer. Multiple elastography samples are obtained. FINDINGS: PANCREAS: Normal. The visualized pancreatic head and body are normal in appearance. The remainder of the pancreas is obscured from visualization by the overlying bowel gas. ABDOMINAL AORTA: The proximal, middle, and distal aortic segments are normal in caliber. INFERIOR VENA CAVA: Visualized portions are normal. LIVER: The liver demonstrates normal size, contour and slightly increased echogenicity. No focal lesion or intrahepatic biliary duct dilatation. The right lobe measures 18.0 cm in length. The left lobe measures 12.2 cm in length. Portal flow is towards the liver (hepatopetal). Shear wave liver elastography median stiffness is 2.09 m/s (reference: normal median stiffness is 1.3 m/s or less). IQR/median stiffness to assess sampling precision is 0.15 (reference: good quality data set is IQR/median stiffness of 0.15 or less). GALLBLADDER: Normal. The gallbladder is physiologically distended without evidence of stones, sludge, polyps, wall thickening or pericholecystic fluid. COMMON BILE DUCT: Normal in caliber measuring 0.5 cm in diameter. RIGHT KIDNEY: Normal. No hydronephrosis. No renal calculi or focal parenchymal lesions. The kidney measures 12.5 cm in maximum dimension. LEFT KIDNEY: Normal. No hydronephrosis. No renal calculi or focal parenchymal lesions. The kidney measures 11.2 cm in maximum dimension. SPLEEN: Normal. The spleen measures 11.6 cm in maximum dimension. FREE FLUID: None. US/US abdomen comp w elastography IMPRESSION: 1. There is slightly increased hepatic echotexture, consistent with fatty infiltration or hepatocellular disease. Please correlate clinically. No focal hepatic mass or intrahepatic biliary dilatation is seen. 2. There is mild hepatomegaly. 3. Liver elastography: Measurements are suggestive of compensated advanced chronic liver disease but need further test for confirmation. REFERENCE: Society of Radiologists in Ultrasound Liver Stiffness Thresholds (2020): LIVER STIFFNESS THRESHOLDS: *Liver Stiffness equal or less than 1.3 m/s: High probability of being normal. *Liver Stiffness less than 1.7 m/s: In the absence of other known clinical signs, rules out compensated advanced chronic liver disease. *Liver Stiffness 1.7-2.1 m/s: Suggestive of compensated advanced chronic liver disease but need further test for confirmation. *Liver Stiffness over 2.1 m/s: Rules in compensated advanced chronic liver disease. *Liver Stiffness over 2.4 m/s: Suggestive of clinically significant portal hypertension. QUALITY OF DATA SET: *IQR/Median value equal or less than 0.15 implies a quality data set. *IQR/Median value over 0.15 implies a poor quality data set. SIGNIFICANT CHANGE FROM PRIOR EXAM: Significant change if liver stiffness measurement is 10% or greater from prior exam. OTHER CONSIDERATIONS: The stage of liver fibrosis may be overestimated in the setting of acute hepatitis, liver inflammation, elevated liver function tests, hepatic vascular congestion, obstructive cholestasis, non-fasting state, and infiltrative diseases such as amyloidosis and lymphoma. In some patients with NAFLD, the liver stiffness thresholds for compensated advanced chronic liver disease may be lower. In causes other than viral hepatitis and NAFLD, liver stiffness thresholds are not well established.
[2023-04-03 12:20] LABS: Folate 11.6 ng/mL (> or = 4.0); Vitamin B12 667 pg/mL (200-900)
[2023-04-03 12:28] LABS: C Reactive Protein 1.62 mg/dL (< or = 0.50); Cholesterol 213 mg/dL (<200); Ferritin 55 ng/mL (10-250); HDL Cholesterol 35 mg/dL (>40); Insulin 16 uU/mL (2-29); Iron 43 mcg/dL (30-160); LDL Cholesterol Calculated 151 mg/dL (<100); Percent Iron Saturation 14 % (15-50); TSH reflex Free T4 0.85 uIU/mL (0.32-4.0); Total Iron Binding Capacity 300 mcg/dL (228-428); Triglycerides 136 mg/dL (<150); Unsaturated Iron Binding 257 ug/dL; Vitamin D 25-OH Total 38.5 ng/mL (>30)
[2023-04-04 18:32] LABS: Calcium (PTHI) 10.3 mg/dL (8.6-10.2); PTHI 29 pg/mL (16-77)
[2023-04-06 16:23] LABS: Zinc 72 mcg/dL (60-130)
[2023-04-08 17:58] LABS: Vitamin A 28 mcg/dL (38-98)
[2023-04-09 14:18] LABS: Vitamin B1 11 nmol/L (8-30)
== END 2023-04-03 09:13 | disposition home or self-care (01) ==
LOC: HO.US 09:12
PROVIDERS: PCP Nurse Practitioner Family; Visit Provider Surgery
DX: E66.01 Morbid (severe) obesity due to excess calories (principal); R10.11 Right upper quadrant pain; F31.9 Bipolar disorder, unspecified; F11.20 Opioid dependence, uncomplicated; R13.10 Dysphagia, unspecified; K75.81 Nonalcoholic steatohepatitis (NASH); K21.9 Gastro-esophageal reflux disease without esophagitis; Z98.84 Bariatric surgery status
CPT/HCPCS: 36415; 76705; 76981; 80061; 82306; 82607; 82728; 82746; 83525; 83540; 83970; 84425; 84443; 84590; 84630; 86140

== ENCOUNTER → 2023-04-10 12:38 | Outpatient (REF) | payer MEDICAID, SELFPAY | LOC: HO.SL 12:38 | PROVIDERS: PCP Nurse Practitioner Family; Visit Provider Surgery | DX: E66.01 Morbid (severe) obesity due to excess calories (principal); G47.33 Obstructive sleep apnea (adult) (pediatric); F31.9 Bipolar disorder, unspecified; G47.8 Other sleep disorders; R10.11 Right upper quadrant pain; R13.10 Dysphagia, unspecified; K75.81 Nonalcoholic steatohepatitis (NASH); K21.9 Gastro-esophageal reflux disease without esophagitis; F12.20 Cannabis dependence, uncomplicated; F11.20 Opioid dependence, uncomplicated; Z72.0 Tobacco use; Z68.41 Body mass index [BMI] 40.0-44.9, adult; Z98.84 Bariatric surgery status | CPT/HCPCS: 95806; 99212 ==

== ENCOUNTER 2023-04-10 12:59 | Outpatient (AMB) | payer MEDICAID, SELFPAY ==
--- NOTE | 2023-04-10 13:15 | MHC.OFFVISWM ---
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 Press Operator: Arbor Press Operator offered & declined Allergies cephalexin [From KEFLEX] Allergy (Intermediate, Verified 04/10/23 13:20) HIVES ibuprofen Allergy (Unknown, Verified 04/10/23 13:20) Abdominal Pain NSAIDS (Non-Steroidal Anti-Inflamma [NSAIDS (NON-STEROIDAL ANTI-INFLAMMA] Adverse Reaction (Intermediate, Verified 04/10/23 13:20) GI UPSET Motrin Allergy (Unknown, Uncoded 04/10/23 13:20) Abdominal Pain HPI HPI Comments History of Present Illness Details The patient is a 40-year-old woman with a history of obesity and a BMI of 43.7 who was been sent by way of the emergency department at [facility] in Oct, 2021, because of right upper quadrant pain that radiates to her back. The patient notes that this pain has been present for at least 5 years. She is unaware of any association to food. She was seen for these complaints Oct, 2021 and did not f/u with labs or testing noting this problem resolved. This is a 42 year old woman who is interested SWL program with SWL classes, but notes her band & removal may be a greater concern. Her goal is to establish healthier living plan and maintain a healthy weight. She reports first being concerned about her weight several years ago & has been in 3 SWL programs including [facility] where her lap band was placed in 2013, [facility] [place] and then again this year with Dr. Kumar at [facility]. She has tried multiple methods of weight loss including lap band, fad diets, WW without permanent results. She states she was scheduled to have an EGD today by Dr. Kumar, however due to ongoing personal conflict with Dr. Kumar, she decided to drop out of the program and enrolled here [place] [facility] She presented on 02/27/23 at a weight of 256.0 lb/BMI 41.3. Today, she is 234.6/BMI 37.9 & is congratulated on her weight loss. Her current meal plan is Premier shakes, 120gm/day as a goal. She states she is no longer smoking and is on Chantix. She states that she is working on backing off of her marijuana use, especially since it was reported as being heavy. She has an appointment with her psychiatrist regarding anxiety issues as she has backed off. The patient underwent an EGD to assess her band and possible erosion on 03/20/23, but it was a limited study due to vegetable matter in the stomach proper below the band. The patient states that the last time she ate vegetables was 5 days before the attempted endoscopy. No obvious erosion was noted, but the retained food in the stomach required aborting the procedure. This was discussed with the patient will need to be repeated with a longer fasting time frame. She reports ongoing dysphagia and nausea. She notes that the nausea wakes her from sleep at times. She notes that her nausea and vomiting is worse with both Vyvanse (which she stopped) & her marijuana use. We discussed marijuana related withdrawal with significant nausea and vomiting and she is interested in discussing this and tapering off for health reasons. She noted that she heard of this and had questioned whether not she was affected given her daily heavy use. Today she disclose that she has been on Ozempic since December. We discussed how this delays gastric emptying contributing to weight loss and may have contributed to the retained vegetable matter seen at endoscopy. Patient notes that she has been interested in coming off Ozempic and will discuss with her PCP. The importance of communicating all medications and medical issues as well as psychiatric issues was discussed with the patient today and she verbally gave permission to communicate with all of her healthcare team. Past medical history includes status post complete hysterectomy because of desmoid tumors and ovarian cysts Bipolar disorder Nicotine use disorder and states she's interested in cessation GERD and chronic pain being managed with Suboxone by her PCP (as per pt), but today, the pt notes she is off Suboxone & disclosed she is now on Ozempic. She reports a greater than 10 year sobriety from prescribed opiates and that she is back on Suboxone due to chronic back pain. She states this is being managed by her PCP. She notes continued variability in her schedule and we discussed transitioning her meal plan to celebrate protein shakes and she was given a meal plan but noted that she will continue on the premixed Premier shakes in the meantime. Healthy protein options were also reviewed and handout provided. She wakes at a variable times bed at: Inconsistent in varies from 22:00 to 01:00 Breakfast: Skips Lunch: skips Dinner: skips After dinner: skips Other snacks: Liquids: Alcohol intake: rare nicotine: quitting marijuana: heavy daily drugs: in recovery for opiates & on suboxone caffeine: denies The patient notes that she is not routinely eating but is journaling the different foods that she eats which are mostly carbohydrates. She is not taking a protein supplement at this time. Exercise: walking & not scheduled LUCIA: 6 ESS: 5 GERD: 31 QOL: 118 PFSH Medical History VELIZ (nonalcoholic steatohepatitis) Bipolar disorder GERD (gastroesophageal reflux disease) Insomnia Surgical History Hx of excision of dermoid cyst History of liver biopsy Hx of dilation and curettage Hx of tonsillectomy Hx of hysterectomy H/O laparoscopic adjustable gastric banding Social History Alcohol intake: current Alcohol intake frequency: holidays/special occasions only Patient Tobacco Use Status: Former Tobacco user Tobacco use type: Cigarette Substance Use Type: Marijuana Review of Systems Const All systems reviewed & are unremarkable except as noted in HPI and below Reports as per HPI Physical Exam The patient is accompanied by her friend/UROGYNECOLOGY PHYSICIAN and gave permission & requested her care be discussed in front of her She is in no acute respiratory distress Abdomen is obese Results Reviewed Results Reviewed: Diagnostic imaging Upper GI dated 02/28/2023 images and report reviewed: Phi angle is 35 degrees and there is no evidence of free air, perforation, esophageal dysmotility and there is prompt emptying of the contrast through the lap band Abd U/S & elastography shows hepatomegaly, NAFLD and the elastography was consistent with hepatic fibrosis with the shear wave elevateed at 2.09 Nonfasting labs show a hemoglobin of 14.3, white blood cell count 8.6, platelet count 293k Glucose 103 BUN 10, Cr 0.81 CRP 1.62 Total bilirubin normal Vit A low & being treated with MVI AST 24 ALT 21 Pre-albumin low at 14.0 Urine nicotine test is outstanding the patient is continuing to smoke but notes that she is smoking few are cigarettes Urine tox screen is positive for amphetamine consistent with her Vyvanse and positive for THC consistent with her self-reported heavy use Assessment & Plan Assessment & Plan (1) Morbid obesity due to excess calories: Code(s): E66.01 - Morbid (severe) obesity due to excess calories (2) Bipolar 1 disorder: Code(s): F31.9 - Bipolar disorder, unspecified (3) Opiate dependence: Code(s): F11.20 - Opioid dependence, uncomplicated (4) Non-restorative sleep: Code(s): G47.8 - Other sleep disorders (5) Dysphagia: Code(s): R13.10 - Dysphagia, unspecified (6) Nonalcoholic steatohepatitis (VELIZ): Code(s): K75.81 - Nonalcoholic steatohepatitis (VELIZ) (7) GERD (gastroesophageal reflux disease): Code(s): K21.9 - Gastro-esophageal reflux disease without esophagitis (8) H/O laparoscopic adjustable gastric banding: Comment: 09/24/13 Code(s): Z98.84 - Bariatric surgery status (9) Nicotine use: Code(s): Z72.0 - Tobacco use (10) Tetrahydrocannabinol (THC) use disorder, severe, dependence: Code(s): F12.20 - Cannabis dependence, uncomplicated Plan The patient is continuing to take Flintstones chewable multivitamins, 2 a day as directed and will need repeat labs in a couple months to assess both her protein level/pre-albumin and vitamin levels. Hepatic fibrosis and enlargement were discussed with the patient. She is alternately mentioned simple removal of the band verses band removal with revision sleeve gastrectomy. We again discussed her history of recent nicotine use and I would not endorse a gastric bypass given her increased risk for marginal ulcer that could bleeder perforate related to nicotine use. Given her hepatomegaly and fibrosis, the importance of the meal plan was reviewed which will also address the patient's low protein levels. Patient stated that she will contact her PCP regarding her Ozempic. We discussed that this can contribute to gastroparesis and retained vegetable matter and that when her repeat EGD is being scheduled, she will need their need to avoid vegetables and solid food for a week or alternately, it could be scheduled a couple weeks after her Ozempic is stopped. Patient stated that she would ideally like to have band removal and sleeve gastrectomy and seemed understand the importance of participating in her care to address comorbidities. In addition, the need to communicate and coordinate her care with her other healthcare providers was discussed and apparently understood. Urine nicotine/Contin is ordered. Will see the patient back in 4 weeks to discuss repeat EGD at that time. No changes were made to the patient's meal plan. The importance of following exercise recommendations was also discussed with the patient and apparently understood. The option of a 2nd opinion was also offered to the patient but declined. Orders: Orders Nicotine and Metabolite Ur, Qt Today F11.20 - Opioid dependence, uncomplicated, F12.20 - Cannabis dependence, uncomplicated, Z72.0 - Tobacco use Drug Screen Urine Today F11.20 - Opioid dependence, uncomplicated, F12.20 - Cannabis dependence, uncomplicated, Z72.0 - Tobacco use Coding Level of Care Code Est Pt Level 4 (94105) Diagnoses Morbid obesity due to excess calories E66.01 Bipolar 1 disorder F31.9 Opiate dependence F11.20 Non-restorative sleep G47.8 Dysphagia R13.10 Nonalcoholic steatohepatitis (VELIZ) K75.81 GERD (gastroesophageal reflux disease) K21.9 H/O laparoscopic adjustable gastric banding Z98.84 Nicotine use Z72.0 Tetrahydrocannabinol (THC) use disorder, severe, dependence F12.20
[2023-04-10 13:27] VITALS: BP 117/72; PULSE 96; TEMP 36.2; O2SAT 99; BMI 37.9
== END 2023-04-10 13:51 | disposition home or self-care (01) ==
PROVIDERS: PCP Nurse Practitioner Family; Visit Provider Surgery
DX: E66.01 Morbid (severe) obesity due to excess calories (principal); F31.9 Bipolar disorder, unspecified; F11.20 Opioid dependence, uncomplicated; G47.8 Other sleep disorders; R13.10 Dysphagia, unspecified; K75.81 Nonalcoholic steatohepatitis (NASH); K21.9 Gastro-esophageal reflux disease without esophagitis; Z98.84 Bariatric surgery status; Z72.0 Tobacco use; F12.20 Cannabis dependence, uncomplicated
CPT/HCPCS: 99214

== ENCOUNTER → 2023-04-10 13:08 | Outpatient (BNV) | payer MEDICAID, SELFPAY | PROVIDERS: PCP Nurse Practitioner Family; Visit Provider Internal Medicine | DX: G47.33 Obstructive sleep apnea (adult) (pediatric) (principal) | CPT/HCPCS: 95806 ==

== ENCOUNTER → 2023-04-18 14:24 | Outpatient (BNVA) | payer MEDICAID, SELFPAY | PROVIDERS: PCP Nurse Practitioner Family; Visit Provider Dietitian, Registered | DX: E66.9 Obesity, unspecified (principal) | CPT/HCPCS: 97802 ==